=== PATIENT | female | born 1945 | race Caucasian/White ===

== ENCOUNTER → 2017-12-28 15:03 | Outpatient (CLI) | payer MEDICARE, OTHER, SELFPAY ==
--- NOTE | 2017-12-28 15:06 | HPBI_ITS ---
MAMMOGRAPHY - BILATERAL SCREENING REASON FOR EXAM: Female, 72 years old. Routine annual screening examination. PERTINENT HISTORY: Non-contributory. TECHNIQUE: Digital bilateral breast val (3D mammographic acquisition) in the CC and MLO projections. 2-D mediolateral oblique (MLO) and craniocaudad (CC) views of both breasts were obtained. CAD: Full Field Digital Mammography with Computer Added Detection was performed. COMPARISON: Comparison is made with prior study dated January 14, 2016 and August 13, 2015. FINDINGS: Breast Composition: There are scattered areas of fibroglandular density. There are no dominant masses or suspicious calcifications. No other significant abnormalities are identified. There has been no significant change since the prior study. HPBI/SCREENING MAMM (CAD), BILAT IMPRESSION: Stable bilateral screening mammogram. Yearly follow-up mammogram recommended. (A) ASSESSMENT CATEGORY: BIRADS Category 1: Negative. A letter regarding these results will be sent to the patient by the facility within 30 days. Approximately 10% of breast cancers are not detected by mammography. A normal mammogram should not delay biopsy of a clinically suspicious abnormality. [id number] Electronically Signed: Fernando Olivas MD at 8:28 EST Tel [phone], Service support ,
== END ==
PROVIDERS: Family Provider Internal Medicine; PCP Internal Medicine; Visit Provider Internal Medicine
DX: Z12.31 Encounter for screening mammogram for malignant neoplasm of breast (principal)
CPT/HCPCS: 77063; 77067

== ENCOUNTER 2018-01-02 08:47 | Outpatient (RCR) | payer MEDICARE, OTHER, SELFPAY ==
--- NOTE | 2018-01-02 10:06 | HP.PTEVAL ---
Patient's Visit Information STORM GARCIA is a 72 year old F referred to Physical Therapy by ALMA SANCHEZ with a diagnosis of LUMBAR RADICULOPATHY. Date of Evaluation: 01/02/18 Physical Therapist: Alice Ledezma - Visit Plan Frequency: 2-3x /Week Duration: 4-6 Weeks Plan: AQUATIC THERAPY. POSTURE CORRECTION/STRENGTHENING, INSTRUCTION IN APPROPRIATE BODY MECHANICS AND ACTIVITY MODIFICATIONS. DLS WITH A NEUTRAL SPINE. TONY LE ROM, STRETCHING AND STRENGTHENING. HEP INSTRUCTION. *DECOMPRESSION TECHNIQUES* - Subjective Subjective: Work/Leisure: RETIRED. Disability: NO. Present symptoms: RIGHT THORACIC PAIN RADIATING AROUND RIB CAGE. TONY LOW BACK PAIN RIGHT > LEFT. RIGHT BUTTOCK, THIGH, LEG AND FOOT PAIN. PATIENT DENIES NUMBNESS OR TINGLING. DESCRIBES SHOOTING PAIN DOWN RIGHT LE. Present since: MONTHS AGO. Pain Scale: WORST 10/10, LEAST 6/10. Currently: /10. Commenced as a result of: NO APPARENT REASONS OTHER THAN STARTINGT. Symptoms at onset: THORACIC SPINE FIRST THEN SCIATICA. Worse: LYING ON LEFT SIDE IN BED, RIDING IN A CAR, WALKING ON TREADMILL, HOUSEWORK, CAN'T PUSH A SWEEPER, CAN'T SWIFFER, COOKING, DISHES, SHOPPIING, GETTING IN/OUT OF CAR, STEPS ARE IMPOSSIBLE. Better: HEATING PAD, LAZY BOY, LIDOCAINE PATCH SOMETIMES HELPS, IBUPROFEN. Disturbed sleep: YES. Previous history/Previous treatment: 7 SPINE SURGERIES WITH MOST RECENT 1999. SURGERIES FOR SPONDYLOLITHESIS AND STABILIZATION WITH METAL. STATES SHE STARTED EXERCISING AND SWIMMING AT THE [facility] AFTER THE LAST SURGERY. STATES SHE WAS DOING PRETTY GOOD UNTIL ABOUT A YEAR AGO. STATES SHE DID A LOT OF HEAVY LIFTING LAST SPRING WHEN MOVED INTO A [place]. Coughing/sneezing/straining: POSITIVE. Gait: INDEP GAIT WITHOUT AD BUT VERY TIME AND DISTANCE LIMITED. Difficulty initiating urinatin: YES - HAS TO LEAN FORWARD AND LET THE URINE FALL OUT. HAS NOT TOLD ANY DOCTORS. HAS BEEN GOING ON SINCE LAST SUMMER. Accidents: SLIPPED AT HOME IN BEDROOM LAST FALL AND FELL ON BUTT. Unexplained weight loss: NO. Imaging: LAST WEEK THORACIC AND LUMBAR SPINE X-RAYS AT [facility]. ORDERED BY DR. DONALDSON FROM [facility]. PATIENT REPORTS NO ONE HAS GONE OVER THE RESULTS WITH HER SO SHE REALLY DOES NOT KNOW WHAT THE RESULTS ARE. PMH: 10 HEART STENTS AND BYPASS SURGERY 2011. PARTIAL COLECTOMY. HEART CATH LAST APRIL AND THEY THINK SHE HAD A MINI STROKE. - Objective Sitting Posture: RIGID. Standing Posture: RIGID. Lordosis: DECREASED. Lateral shift: NO. Relevant shift: N/A. Active Correction of posture: WORSE. Other Observations: INDEP GAIT INTO PT WITHOUT AD AND MIN FORWARD FLEXION. VERY PLEASANT AND COOPERATIVE TO WORK WITH. Motor deficit: TONY LE STRENGTH GROSSLY 4/5 WITH MMT BUT I PROCEEDED CAREFULLY DUE TO PATIENTS HIGH PAIN LEVELS AND HER NOT KNOWING THE RESULTS OF HER X-RAYS. Sensory deficit: TONY LE LIGHT TOUCH SENSATION APPREARS TO BE INTACT AND SYMMETRICAL WITH TESTING. ROM deficit: TIGHT TONY LE HS'S. Dural Signs: POSITIVE RIGHT LE. Lumbar mvmt loss: flex - MOD. ext - PAULA. R SG - PAULA. L SG - PAULA. PATIENT WITH INCREASED PAIN WITH LUMBAR ROM TESTING INTO EXTENSION (TESTED VERY GENTLY AND JUST SEEING IF PATIENT COULD GET TO NEURTRAL) BUT ESPECIALLY TONY SG TESTING. THORACIC MVMT LOSS: FLEX - MOD, EXT - PAULA, RIGHT ROT - PAULA, LEFT ROT - MOD. PATIENT HAS C/O INCREASED PAIN IN THORACIC AREA WITH RIGHT ROTATION TESTING BUT NOT LEFT. Core strength: POOR. OTHER: RADIATING PAIN DOWN RIGHT LE STARTED DURING SESSION. ABLE TO ABOLISH RIGHT LE SX'S IN RIGHT SDLY BUT THIS INCREASED THORACIC PAIN. ABLE TO DECREASE THORACIC PAIN TO 5/10 (BEST IT HAS BEEN) IN PRONE BUT LOW BACK STARTED TO INCREASE. OVER-ALL, UNABLE TO REDUCE THORACIC PAIN MUCH WITH POSITION CHANGES. WOULD RECOMMEND PATIENT GET X-RAY RESULTS AND IF NO CONTRAINDICATIONS FOR PHYSICAL THERAPY TO DO A TRIAL OF AQUATIC THERAPY. PATIENT IS AGREEABLE. - Goals Goal 1:: DECREASE C/O BACK AND LE SX'S Goal Time Frame: 4-6 Weeks Goal 2:: IMPROVE PERSONAL CARE, LIFTING, WALKING, SITTING, STANDING, LYING, SOCIAL LIFE, TRAVEL, HOMEMAKING AND SLEEP FUNCTION Goal Time Frame: 4-6 Weeks Goal 3:: INSTRUCT IN PROPHYLAXIS Goal Time Frame: 4-6 Weeks - Rehabilitation Potential Rehabilitation Potential: Fair - Anticipated Interventions Patient/Client Instruction: Educate patient on: Condition, Plan of Care, Risk Factors, Benefits of Fitness Program For the Purpose of:: To improve self management Therapeutic Exercise to Include: Strength training, Body mechanics, Postural training, Flexibilty training, In an aquatic setting, Dynamic Lumbar Stabilization For the Purpose of:: To improve ability of physical actions for home/community/work/leisure Thank you for the opportunity to evaluate your patient. For Medicare and Medicare HMO plans, please review the plan of care and approve it. It will need to be FAXED BACK to us at [phone] for Medicare purposes. Please let me know if there are questions or concerns regarding this plan of care. Physician Signature: Date:
--- NOTE | 2018-05-22 14:16 | HP.PTDCNRP_ITS ---
HP - Discharge Summary (1) - Patient Information STORM GARCIA was seen in my office for initial evaluation on 01/02/18. The following Plan of Care was established for this patient: Initial Frequency: 2-3x /Week Initial Duration: 4-6 Weeks - Anticipated Interventions Patient/Client Instruction: Educate patient on: Condition, Plan of Care, Risk Factors, Benefits of Fitness Program For the Purpose of:: To improve self management Therapeutic Exercise to Include: Strength training, Body mechanics, Postural training, Flexibilty training, In an aquatic setting, Dynamic Lumbar Stabilization For the Purpose of:: To improve ability of physical actions for home/community/ work/leisure This patient was last seen in our office 01/02/18. Pertinent comments regarding their Physical therapy will appear below: This patient has not returned to Physical Therapy and is appropriate to return to MD for further follow-up as needed. At this point I will be discontinuing this patient from physical therapy. I would be happy to see this patient again in the future if found appropriate by the physician. Thank you! Alice Ledezma
== END 2018-01-02 19:00 | disposition home or self-care (01) ==
LOC: PT 08:47
PROVIDERS: Family Provider Internal Medicine; PCP Internal Medicine
DX: M54.16 Radiculopathy, lumbar region (principal)
CPT/HCPCS: 97162; 97530

== ENCOUNTER 2019-01-14 12:00 | Outpatient (RCR) | payer MEDICARE, OTHER, SELFPAY ==
--- NOTE | 2018-12-18 09:27 | HP.PTEVAL ---
Patient's Visit Information STORM GARCIA is a 73 year old F referred to Physical Therapy by Alphonse Perry with a diagnosis of PLPS -LUMBAR,LBP,FIBROMAYALGIA. Date of Evaluation: 12/18/18 Physical Therapist: Harinder Guido, PT, Cert MDT, OCS - Visit Plan Frequency: 2x /Week Duration: 4 Weeks Plan: AQUATIC PT FOR LUMBAR ROM.STRENGTHENING ,POSTURAL EX'S,LE STRENGTHENING/FLEXABLITY - Subjective Findings: This 73 y/o female presents to physical therapy with LUMBAR - PLPS ,LBP ,Fibromayalgia. Patient mutliple comorbities -CABG and 10 stents. Patient has had 4 lumbar surgeries most recent 2011 plate a screws. Patient 1st lumbar fusion L4-5 2000,lumbar fusion L3-4 ,2005,L2-4 lumbar fusion 2006. Patient also has hade mutilpe cervical fusion and disectomy 1992,C6-7,C5-6 1994,1999 C4-5 CERVICAL FUSION,2005 C3-T1 FUSION 2005. Most recently patient seen [facility] recommended AQuatic PT. Patient pain located mainly right thoracic region . Symptoms worse with lifting,driving,housework,standing extended walking. Patient unable to take MEDS.Heat makes it better. Patient denies parathesia but occassionally tingling in feet. Patient pain affects sleeping . Coughing/sneezing -. Patient bowel/bladder -. Patient chronic pain issues affect QOL and function. VOCATION: retired. SOCIAL: - Pain Bilateral Back Pain Intensity (Out of 10): 5 Pain Intensity Range: 10 - Objective POSTURE: mild foward posture,thoracic kyphosis,scoliosis. GAIT: mild foward posture ,reciprocal pattern. NEURO: denies parathesia/tingling,reflexes L3-4,L4-5,L5-S1 1/3. PALPATION: tender L-S region. MMT: quads/hams/hip 4-/5,ankle 4/5. LUMBAR ROM: flexion WFL loss,extension mod/severe loss,side glides mod/severe loss. FLEXABLITY: hams min tight - Special Tests L/S Slump test left side: Negative L/S Slump test right side: Negative L/S Left Straight Leg Raise: Negative L/S Right Straight Leg Raise: Negative - Goals Goal 1:: Independant with Aquatic PT Goal Time Frame: 4-6 Weeks Goal 2:: Patient bto decrease lumbar pain by 40 % or greater to improve function. Goal Time Frame: 4-6 Weeks Goal 3:: Patient increase strength quads/hams/hip to 4/5 to improve function with ADL'S Goal Time Frame: 4-6 Weeks Goal 4:: Patient to improve ADL's and ability to perform housework tasks with min limiations Goal Time Frame: 4-6 Weeks Goal 5:: Patient to improve FRED lumbar score by 5 points to improve QOL. Goal Time Frame: 4-6 Weeks - Rehabilitation Potential Physical Therapy Diagnosis: This patient has multiple comorbities with lumbar and cervical fusions with pain,loss motion,decrease strength ,impairs gait and function along with ADL'S Rehabilitation Potential: Good - Anticipated Interventions Patient/Client Instruction: Educate patient on: Condition, Plan of Care For the Purpose of:: To decrease pain, To increase ROM, To improve muscle performance and motor function, To improve ability to perform ADL's, To increase tolerance to activity/condition/position, To improve ability of physical actions for home/community/work/leisure, To improve health of tissue, To decrease soft tissue restriction, To increase flexibility/ROM, To reduce risk of recurrence, To improve health and function, To improve ability to perform tasks related to life management Therapeutic Exercise to Include: Strength training, Postural training, Flexibilty training, In an aquatic setting, Dynamic Lumbar Stabilization Comment: BLE For the Purpose of:: To decrease pain, To increase ROM, To improve muscle performance and motor function, To increase tolerance to activity/condition/position, To decrease level of supervision to perform tasks, To improve ability of physical actions for home/community/work/leisure, To improve gait and locomotor functions, To decrease soft tissue restriction, To increase flexibility/ROM, To improve health and function, To improve ability to perform tasks related to life management Thank you for the opportunity to evaluate your patient. For Medicare and Medicare HMO plans, please review the plan of care and approve it. It will need to be FAXED BACK to us at [phone] for Medicare purposes. For Medicare only, by signing this I certify the plan of care. Please let me know if there are questions or concerns regarding this plan of care. Physician Signature: Date:
--- NOTE | 2019-02-27 13:21 | HP.PTDCSUM ---
HP - PT D/C Summary It has been my pleasure to treat STORM GARCIA under orders from Alphonse Perry, for the diagnosis of PLPS -LUMBAR,LBP,FIBROMAYALGIA for a total of 7 visit(s). Discharge Date: 01/14/19 Please see the following information for a summary of their discharge status. - Subjective Subjective: Symptoms same when I was in water the sciatica pain. got worse.Patient reports alot better with predisone with min pain - Pain Bilateral Back Pain Intensity (Out of 10): 3 L knee Pain Intensity (Out of 10): 3 - Overall Improvement % Improvement: 40 - Objective Objective/Function: POSTURE: mild foward posture. GAIT: normal sherin reciprocal pattern. MMT: quads/hams 4/5,hip flexion 4-/5. LUMBAR ROM: flexion min loss,extension mod loss. -SLR - Goals Goal 1:: Independant with Aquatic PT Goal Progress: Not Progressing Goal 2:: Patient bto decrease lumbar pain by 40 % or greater to improve function. Goal Progress: Progressing Goal 3:: Patient increase strength quads/hams/hip to 4/5 to improve function with ADL'S Goal Progress: Progressing Goal 4:: Patient to improve ADL's and ability to perform housework tasks with min limiations Goal Progress: Progressing Goal 5:: Patient to improve FRED lumbar score by 5 points to improve QOL. Goal Progress: Progressing - Plan Plan: D/C - D/C Information If there are questions or concerns regarding this patient's physical therapy, please feel free to call me at [phone]. Thank you for the referral of this patient. Sincerely, Harinder Guido, PT, Cert MDT, OCS
== END 2019-01-14 19:00 | disposition home or self-care (01) ==
LOC: PT 12:00
PROVIDERS: Family Provider Family Medicine; PCP Family Medicine; Visit Provider Physical Medicine & Rehabilitation
DX: M96.1 Postlaminectomy syndrome, not elsewhere classified (principal); M54.5 Low back pain; M79.7 Fibromyalgia
CPT/HCPCS: 97113; 97162; 97530

== ENCOUNTER → 2019-01-31 07:55 | Outpatient (CLI) | payer MEDICARE, OTHER, SELFPAY ==
--- NOTE | 2019-01-31 | ASPIG_PTH ---
PATIENT: STORM GARCIA LOC: [facility]#:[id number] AGE/SX: 79/F ROOM: RE01/31/[address]: Dr. Valdo Tang MD : 1945 BED: DIS: SPEC #: [id number] RECD: 01/31/19 11:13 STATUS: FAITH CIFUENTESAnnalee #: [id number] TOMER: 01/31/19 00:[address]: Valdo Tang DEPT: CYTOLOGY RECD BY: Vikram Cervantes ENTERED: 01/31/19 11:14 SP TYPE: ASP OUT OTHR DR: Dr. Milton Zepeda MD Tissues: Thyroid gland, NOS Procedures: FNA Specimen Adequacy Special Stain Group II Surgery Specimen Level IV Cytology Other HEADER OPERATION: Ultrasound-guided FNA right thyroid PRE-OP DIAGNOSIS: Right thyroid nodule TISSUE SUBMITTED: Right thyroid lobe FNA DIAGNOSIS CYTOLOGY Right thyroid lobe, ultrasound-guided FNA (smears, cytospin and cell block): Consistent with benign colloid nodule. Adequate for evaluation. See cytology study and comment. SJ:alvino 02/01/19 COMMENT The specimen is evaluated at the time of FNA by Dr. Cedillo. Immediate Evaluation = Adequate for evaluation. Follicular cells present. Correlation with clinical, radiologic findings and appropriate follow up are necessary. Case has been reviewed in consultation with Dr. Abraham who concurs with the above diagnosis. IDC:AM CYTOLOGY STUDY Slides are reviewed. The specimen is paucicellular, however, adequate for evaluation and consists of benign follicular cells and small amount of colloid. CYTOLOGY GROSS Received in three passes is 0.5 ml of bloody fluid labeled with the patient's name, and designated right thyroid lobe. Six imprints and six paps are made from the submitted fluid and the rest is added to CytoLyt for cell block preparation. Submitted for cytology study. / KAYLI:alvino 01/31/19 TC:5 CPT: 83236, 76220, 38701, 06835
--- NOTE | 2019-01-31 08:00 | US_ITS ---
PROCEDURE: ULTRASOUND GUIDED RIGHT THYROID FNA/BIOPSY. DATE: January 31, 2019 INDICATION: Female, 73 years old. Right thyroid nodule. PHYSICIAN: Fernando Olivas M.D. MEDICATIONS: 2% lidocaine administered subcutaneously for local anesthesia. ACCESS SITE: Right - anterior approach. NEEDLE: 25-gauge FNA needle. SPECIMEN: Multiple FNA specimen collected and given to pathology. EBL: None. COMPLICATIONS: None immediate. PROCEDURE: The risks, benefits, and alternatives to the procedure were explained to the patient. The specific risk of hemorrhage requiring further treatment or intervention was detailed and accepted. Written informed consent was obtained. The patient was brought into the ultrasound room and placed in the supine position on the stretcher. An appropriate entry site was identified. The overlying skin was prepped and draped in the usual sterile fashion. 2% lidocaine was administered subcutaneously for local anesthesia. Under ultrasound guidance, a 25-gauge FNA needle was advanced into the lesion. Aspiration was performed and the needle was withdrawn. A total of 3 passes were performed with specimen collected and given to the pathologist who was present during the procedure. Hemostasis was achieved with manual compression. Repeat ultrasound images of the biopsy area was performed which demonstrated no gross bleeding or hematoma. An antibiotic ointment dressing was placed and the patient was given an icepack. The patient tolerated the procedure well without immediate complications. The patient was discharged in stable condition. US/FNA 1st Biopsy w/ US IMPRESSION: Successful ultrasound-guided right thyroid nodule FNA/biopsy, as described above. Electronically Signed: Fernando Olivas, at 11:13 EDT , Service support ,
--- NOTE | 2019-02-11 15:58 | ED.RN ---
DURING FOLLOW UP CALL PT MENTIONED THAT SHE CALLED HER DR'S OFFICE TODAY AND THEY HAD NO RECEIVED PATHOLOGY REPORT YET. LESLY ALVAREZ THEN CALLED DR. RG OFFICE TO SEE IF THEY HAD RECEIVED THE CYTOLOGY REPORT. DR RG OFFICE STAFF, ANILA LOOKED IN PATIENT'S CHART AND THERE WAS NO CYTOLOGY REPORT. LESLY ALVAREZ FAXED OVER CYTOLOGY REPORT TO DR. IFRAH HASKINS.
== END ==
PROVIDERS: Family Provider Family Medicine; PCP Family Medicine; Referring Provider Otolaryngology; Visit Provider Otolaryngology
DX: E04.1 Nontoxic single thyroid nodule (principal)
CPT/HCPCS: 10005; 88161; 88172; 88305; 88313

== ENCOUNTER 2019-03-03 07:23 | Inpatient (IN) | payer MEDICARE, OTHER, SELFPAY ==
[2019-03-03] VITALS (16 sets, daily range): BP systolic 103–161; BP diastolic 55–89; PULSE 55–130; RESP 13–27; TEMP 36.4–36.9; O2SAT 93–96; BMI 22.0; BMI 23.4
--- NOTE | 2019-03-03 07:30 | RAD_ITS ---
STUDY: X-RAY CHEST REASON FOR EXAM: Female, 73 years old. Sudden onset of chest pain this morning with jaw pain and bilateral arm pain. TECHNIQUE: Single AP portable view of the chest. COMPARISON: August 06, 2016 FINDINGS: Cardiac monitoring leads are present. Patient is status post sternotomy. The lungs are hyperexpanded. There is no obvious airspace consolidation. There is no demonstrated pleural abnormality. There is mild cardiac enlargement. Normal mediastinum and jessica. Normal visualized pulmonary arteries. There is atherosclerotic calcification of the aortic arch with tortuosity. There is demineralization of the osseous structures. Patient has had previous cervical spine surgery. Patient has also had previous lumbar spine surgery. There is no demonstrated abnormality of the visualized soft tissue structures of the upper abdomen. RAD/Chest 1 View (Portable) IMPRESSION: Postoperative changes and cardiomegaly without evidence of acute cardiopulmonary disease. Electronically Signed: Celeste Byrd MD at 8:05 EDT , Service support ,
--- NOTE | 2019-03-03 07:30 | EKG12_ITS ---
Test Reason : CP Blood Pressure : / mmHG Vent. Rate : 128 BPM Atrial Rate : 122 BPM P-R Int : 000 ms QRS Dur : 084 ms QT Int : 282 ms P-R-T Axes : 000 047 047 degrees QTc Int : 411 ms Atrial fibrillation with rapid ventricular response Nonspecific ST abnormality Abnormal ECG Confirmed by RENARD MCCULLOUGH, REBECCA ([id number]), supervising editor trailer BERNARDA AVERY ([id number]) on 03/06/2019 9:04:43 AM Referred By: CONSTANTINO Confirmed By:REBECCA GLYNN MD
--- NOTE | 2019-03-03 07:34 | ED.VISSUMM ---
- ER Visit Summary Date of Service: 03/03/19 Chief Complaint: [] Rapid heart rate chest pressure History of Present Illness: The patient is a 73 F [] patient indicates she went to bed feeling fine she was awoken at 5 AM with a sense of rapid heart rate chest pounding jaw pain chest pressure, she has a history of CABG 2011 her cardiovascular status has been stable, A. fib she is not known to currently be in A. fib she believes she is in sinus rhythm, she is followed by trimmer and reinforcer in the [facility], he has had no fever no nausea vomiting no cough no exertional symptoms, her rapid heart rate persisted and she came in on arrival she is noted to be in A. fib rate 120-140 RVR her vital signs are within normal range otherwise Physical Examination: [] Vital signs are within normal range except for the heart rate above General, no distress resting comfortably HEENT is generally unremarkable The neck is supple no adenopathy Cardiovascular, irregular 110-140 A. fib on the monitor Lungs, clear bilateral Abdomen, soft nontender Extremities, no clubbing cyanosis or edema Neurologic, awake alert answering questions appropriately moving all 4 extremities Test Results: [] Emergency Department Course and Treatment: [] EKG shows A. fib RVR 130 no acute injury pattern is appreciated given all the above screening labs are obtained IV fluids pain management Cardizem for rate control Treatment Plan: [] Patient screening labs chest x-ray unremarkable she is been treated the Cardizem her heart rate is lower clinically she looks well and she is stable I spoke with the hospitalist given all the above will arrange for admission Disposition: [] Admit stable Impression: [] A. fib RVR recurrent, paroxysmal, history of CABG history of A. fib This note was generated with [employer] software. It may contain incorrect words, spelling, and punctuation that were not noted in review of the chart prior to signing ED Disposition - Plan for ED Patient: Referrals: Milton Zepeda MD [Primary Care Provider] -
--- NOTE | 2019-03-03 07:37 | ED.DCSUM_ITS ---
- ER Visit Summary Date of Service: 03/03/19 Chief Complaint: [] Rapid heart rate chest pressure History of Present Illness: The patient is a 73 F [] patient indicates she went to bed feeling fine she was awoken at 5 AM with a sense of rapid heart rate chest pounding jaw pain chest pressure, she has a history of CABG 2011 her cardiovascular status has been stable, A. fib she is not known to currently be in A. fib she believes she is in sinus rhythm, she is followed by sales office assistant in the [facility], he has had no fever no nausea vomiting no cough no exertional symptoms, her rapid heart rate persisted and she came in on arrival she is noted to be in A. fib rate 120-140 RVR her vital signs are within normal range otherwise Physical Examination: [] Vital signs are within normal range except for the heart rate above General, no distress resting comfortably HEENT is generally unremarkable The neck is supple no adenopathy Cardiovascular, irregular 110-140 A. fib on the monitor Lungs, clear bilateral Abdomen, soft nontender Extremities, no clubbing cyanosis or edema Neurologic, awake alert answering questions appropriately moving all 4 extremities Test Results: [] Emergency Department Course and Treatment: [] EKG shows A. fib RVR 130 no acute injury pattern is appreciated given all the above screening labs are obtained IV fluids pain management Cardizem for rate control Treatment Plan: [] Patient screening labs chest x-ray unremarkable she is been treated the Cardizem her heart rate is lower clinically she looks well and she is stable I spoke with the hospitalist given all the above will arrange for admission Disposition: [] Admit stable Impression: [] A. fib RVR recurrent, paroxysmal, history of CABG history of A. fib This note was generated with [employer] software. It may contain incorrect words, spelling, and punctuation that were not noted in review of the chart prior to signing ED Disposition - Plan for ED Patient: Referrals: Milton Zepeda MD [Primary Care Provider] -
[2019-03-03 07:42] LABS: Absolute Neutrophil Count 6.3 X10^3/uL (2.0-7.7); Basophil# 0.03 X10^3/uL; Basophil% 0.3 % (0-1); Hematocrit 39.8 % (37-47); Hemoglobin 13.4 g/dl (12.0-15.0); Lymphocyte % 22.1 % (19-41); Mean Corp Hgb Conc 33.7 g/gl (32-36); Mean Corpuscular Hgb 30.2 pg (27.0-32.0); Mean Corpuscular Volume 89.6 fL (81-99); Mean Platelet Vol. 9.9 fl (6.2-12.0); Monocyte# 1.02 X10^3/uL; Monocyte% 10.7 % (0-10); Neutrophil # 6.31 X10^3/uL (2.7-7.7); Neutrophil % 66.6 % (47-70); Platelet Count 351 K/mm3 (150-450); RBC Distribution Width CV 13.6 % (11.6-14.6); Red Blood Count 4.44 M/mm3 (4.2-5.4); White Blood Count 9.5 K/mm3 (4.4-11.0)
[2019-03-03 07:52] LABS: POSITIVE COUNT NO; POSITIVE DIFFERENTIAL NO; POSITIVE MORPHOLOGY NO
[2019-03-03] MEDS: Ondansetron 4 MG/2 ML Vial IV (07:55)
[2019-03-03] MEDS: 0.9% Normal Saline 1,000 ML 150 ML IV (07:55)
[2019-03-03] MEDS: Aspirin 81 MG TAB.CHEW 324 MG PO (07:55)
[2019-03-03] MEDS: HYDROmorphone 0.5 MG/0.5 ML SYRINGE IV (07:57)
[2019-03-03] MEDS: dilTIAZem 25 MG/5 ML Vial 20 MG IV BOLUS (07:57)
[2019-03-03 08:00] LABS: Anion Gap 7 (5-15); BUN 19 mg/dL (7-18); BUN/Creat Ratio 17.1 RATIO (10-20); Calcium,Total 8.8 mg/dL (8.5-10.1); Chloride 100 mmol/L (98-107); Creatinine, Serum 1.11 mg/dL (0.55-1.02); EST Glomerular Filtration Rate 51 mL/min (>60); Est Glom Filt Rate - Afr Amer 62 mL/min (>60); Estimated Creatinine Clearance 45.53 ml/min; Glucose 98 mg/dL (74-106); Potassium 3.8 mmol/L (3.5-5.1); Sodium Level 134 mmol/L (136-145)
--- NOTE | 2019-03-03 09:31 | EKG12_ITS ---
Test Reason : REPEAT Blood Pressure : / mmHG Vent. Rate : 079 BPM Atrial Rate : 141 BPM P-R Int : 000 ms QRS Dur : 082 ms QT Int : 390 ms P-R-T Axes : 000 019 032 degrees QTc Int : 447 ms Atrial fibrillation Abnormal ECG Confirmed by REBECCA GLYNN MD ([id number]), primer expeditor and drier BERNARDA AVREY ([id number]) on 03/06/2019 9:16:05 AM Referred By: CONSTANTINO Confirmed By:REBECCA GLYNN MD
[2019-03-03 10:33] LABS: Magnesium 1.8 mg/dL (1.6-2.6); Thyroid Stim Hormone (TSH) 2.11 uIU/mL (0.358-3.74)
[2019-03-03] MEDS: 0.9% Normal Saline 1,000 ML 75 ML IV (12:06)
--- NOTE | 2019-03-03 12:58 | PCM.HP.STD ---
Problem List (1) History of coronary artery bypass graft x 3 Status: Chronic Comment: 2012 (2) History of PTCA Status: Chronic (3) Fibromyalgia Status: Chronic (4) Hypertension Status: Chronic Qualifiers: Hypertension type: essential hypertension Qualified Code(s): I10 - Essential (primary) hypertension (5) Hyperlipidemia Status: Chronic Comment: INTOLERANT OF STATINS (6) Endometriosis Status: Chronic Comment: Status post DEJUAN/BSO (7) Crohns disease Status: Chronic Comment: Status post partial colectomy (8) Atrial fibrillation with RVR Status: Acute (9) Coronary artery disease Status: Chronic Qualifiers: Coronary Disease-Associated Artery/Lesion type: [place] artery (10) Diverticulosis Status: Chronic (11) Polyarthritis Status: Chronic (12) Hyponatremia Status: Acute (13) Elevated serum creatinine Status: Acute (14) Chest pain Status: Acute History of Present Illness Date of Admission: 03/03/19 Chief Complaint: Substernal chest pain with radiation to the neck and to the right arm The patient is a 73 year old F with a past medical history of hypertension, rheumatic fever, coronary artery disease with history of PTCA and a CABG in 2011, hyperlipidemia, endometriosis (status post DEJUAN/BSO), fibromyalgia and polyarthritis who presented to the emergency department at [facility] on 03/03/2019 complaining of substernal chest pain that awoke her from sleep. It radiated into the neck and down the right arm. She has been getting this pain frequently and when she gets that she knows she is in atrial fibrillation. She generally takes a Cardizem 30 mg when she feels this. After an hour and a half the pain was still there and she came to the emergency department. She tells me she also gets substernal chest pain radiating to the neck and down the right arm with exertion. She has been using approximately 25 sublingual nitroglycerin a week. She has not had a recent stress test. She had an anaphylactic reaction to amiodarone in the past. She tells me she cannot take beta-blockers because they cause throbbing stabbing pain in her right scientologist. She tells me Imdur, statins and Nitropaste give her the same stabbing pain in the right scientologist. Eliquis and Xarelto also caused the stabbing CHENG. She is worried that she may have and aneurysm. Vital signs of presentation to the emergency room are temperature 98.4, pulse rate 124, blood pressure 161/89, respiratory rate 27 and she was 96% on room air. The EKG showed atrial flutter/atrial fibrillation with some ST segment depression which was upsloping in the lateral leads. She received 20 mg of IV Cardizem in the emergency department which controlled her heart rate nicely. CBC was unremarkable. Sodium is mildly decreased at 134 and the potassium is 3.8. BUN is 19 and the creatinine is 1.11. We have no recent baseline on this patient. She generally follows up at [facility]. Troponin I's less than 0.015 and TSH was normal at 2.11. Magnesium was 1.8. Chest x-ray showed no infiltrates, pleural effusions or pulmonary vascular congestion. She was admitted to a monitored bed on PCU and will be started on Cardizem CD 120 mg. Past Medical History Past Medical History (Chronic Problems): Chronic Problems History of coronary artery bypass graft x 3 (Chronic) 2011 History of PTCA (Chronic) Fibromyalgia (Chronic) Hypertension (Chronic) Hyperlipidemia (Chronic) INTOLERANT OF STATINS Endometriosis (Chronic) Status post DEJUAN/BSO Crohns disease (Chronic) Status post partial colectomy Diverticulosis (Chronic) Polyarthritis (Chronic) Coronary artery disease (Chronic) Allergies almond Allergy (Severe, Verified 03/03/19 10:41) Anaphylaxis amiodarone Allergy (Severe, Verified 03/03/19 10:41) Anaphylaxis [place]qg-Dvj-F[employer] Reductase Inhibitor Allergy (Mild, Verified 03/03/19 10:41) Other muscle pain diazepam [From Valium] Adverse Reaction (Severe, Verified 03/03/19 10:41) Low blood pressure morphine Adverse Reaction (Severe, Verified 03/03/19 10:41) Low blood pressure lorazepam [From Ativan] Adverse Reaction (Intermediate, Verified 03/03/19 10:41) Other Agitation Home Medications: Ambulatory Orders Medication Instructions Recorded Aspirin 81 mg PO DAILY 08/06/16 Clopidogrel Bisulfate [Plavix] 25 mg PO DAILY 08/06/16 Gabapentin [Neurontin] 300 mg PO QHS 08/06/16 Linaclotide [Linzess] 1 cap PO DAILY 08/06/16 Nitroglycerin [Nitrostat] 0.4 mg SUBLINGUAL Q5M PRN 08/06/16 Orlistat [Xenical] 60 mg PO DAILY 08/06/16 Acetaminophen 325 mg PO TID PRN PRN 03/03/19 Ascorbic Acid [Vitamin C] 1,000 mg PO DAILY 03/03/19 Besifloxacin HCl [Besivance] 5 ml RIGHT EYE 4X/DAY 03/03/19 Difluprednate [Durezol] 5 ml RIGHT EYE 4X/DAY 03/03/19 Diltiazem [Cardizem] 30 mg PO DAILY PRN 03/03/19 Prednisone 5 mg PO DAILY 03/03/19 Sodium Chloride [Krish-128 5%] 1 applic RIGHT EYE QHS 03/03/19 Surgical History: appendectomy - With hysterectomy, cholecystectomy, colectomy - for crohn's disease, partial, coronary bypass surgery - ?3 vessel in 2011, hysterectomy - with BL oophorectomy for endometriosis, tonsillectomy, - - Colonoscopy without lesions, back surgery due to discogenic and degenerative joint disease Psychiatric History: No pertinent 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 Denies: Edema, Orthopnea, Syncope Respiratory: Reports: Shortness of breath upon exertion. Denies: Cough, Shortness of breath at rest, Sputum production, Wheezing Gastrointestinal: Denies: Abdominal Pain, Nausea, Vomiting Genitourinary: Denies: Dysuria Gynecological: Reports: Vaginal discharge - was recently on Amoxicillin Musculoskeletal: Denies: Joint Pain, Joint Tenderness Skin: Denies: Jaundice, Rash, Wounds Neurological: Denies: Numbness, Tingling, Focal weakness Psychiatric: Denies: Anxiety, Depression, Homicidal Ideations, Suicidal Ideations Endocrine: Denies: Hx of Thyroiditis Hematologic/ Lymphatic: Denies: Easy Bruising, Easy Bleeding, Hx of blood clot VTE Information - Inpt Only VTE Present on Admission: No VTE Mechan Device Prophylaxis: None VTE Pharm Prophylaxis ordered?: No Reason prophylaxis not ordered:: Treatment Not Indicated - pt is on Eliquis 1 mg/kg q 12H Patient Problems: Active and Suspected Problems Hyponatremia (Acute) Elevated serum creatinine (Acute) Chest pain (Acute) - Physical Exam General: Alert, Oriented x3, Cooperative, No apparent distress, Well developed, Well nourished HEENT: Atraumatic, PERRLA, EOMI, Normocephalic Oral: Dry Mucosa Neck: Supple, No JVD, Negative Carotid Bruits, No Nodes, Trachea Midline Lungs: Clear to auscultation, Normal air movement Cardiovascular: Normal S1, Normal S2, No murmurs, No rub noted, No Gallop, - - AF with controlled VR at the present time Abdomen: Bowel Sounds Present, Soft, Non Tender, Non-Distended Extremities: No clubbing, No cyanosis, No edema, No Calf Tenderness, Peripheral Pulses Normal Skin: No rashes, No breakdown Musculoskeletal: No Muscle Wasting Neurological: Cranial nerves II-XII grossly intact, Neuro grossly intact Psych/Mental Status: Normal Affect, Appropriate Vital Signs Temp Pulse Resp BP Pulse Ox 97.6 F L 75 17 103/55 L 94 03/03/19 10:02 03/03/19 11:02 03/03/19 10:02 03/03/19 10:02 03/03/19 10:02 Oxygen Flow Rate (L/min) 2 Oxygen Delivery Method Room Air Weight: 154 lb 1.65 oz Body Mass Index (BMI) 23.4 Intake and Output for Last 24 Hours 03/01/19 03/02/19 03/03/19 23:59 23:59 23:59 Intake Total 120 / 120 Balance 120 / 120 Laboratory Tests Past 24 Hrs 03/03/19 03/03/19 03/03/19 07:30 07:30 07:30 WBC 9.5 RBC 4.44 Hgb 13.4 Hct 39.8 MCV 89.6 MCH 30.2 MCHC 33.7 RDW 13.6 RDW Differential 44.0 H Plt Count 351 MPV 9.9 Immature Gran % (Auto) 0.300 Neut % (Auto) 66.6 Lymph % (Auto) 22.1 [place] % (Auto) 10.7 H Eos % (Auto) 0.0 Baso % (Auto) 0.3 Absolute Neuts (auto) 6.3 Absolute Lymphs (auto) 2.10 Total Counted Not Reportable Sodium 134 L Potassium 3.8 Chloride 100 Carbon Dioxide 27.0 Anion Gap 7 BUN 19 H Creatinine 1.11 H Estim Creat Clear Calc 45.53 Est GFR (MDRD) Af Amer 62 Est GFR (MDRD) Non-Af 51 L BUN/Creatinine Ratio 17.1 Glucose 98 Calcium 8.8 Magnesium Troponin I < 0.015 B-Natriuretic Peptide 133.0 H TSH 03/03/19 03/03/19 07:30 10:20 WBC RBC Hgb Hct MCV MCH MCHC RDW RDW Differential Plt Count MPV Immature Gran % (Auto) Neut % (Auto) Lymph % (Auto) [place] % (Auto) Eos % (Auto) Baso % (Auto) Absolute Neuts (auto) Absolute Lymphs (auto) Total Counted Sodium Potassium Chloride Carbon Dioxide Anion Gap BUN Creatinine Estim Creat Clear Calc Est GFR (MDRD) Af Amer Est GFR (MDRD) Non-Af BUN/Creatinine Ratio Glucose Calcium Magnesium 1.8 Troponin I < 0.015 B-Natriuretic Peptide TSH 2.11 Assessment/Plan All Active Problems Hyponatremia (Acute) Elevated serum creatinine (Acute) Chest pain (Acute) Chronic back pain (Acute) Atrial fibrillation with RVR (Acute) Impressions 1. AF/flutter with RVR - Cardizem ordered. Not on any anticoagulation as OP 2. chest pain with RVR and with exertion associated with SOB and radiating to the neck and the R arm. CABG was in 2012 and she has not had any recent stress test 3. CAD 4. HTN 5. HLD - has Repatha at home but has not taking it. She is intolerant of statins 6. CABG 2012 X 3 vessels 7. PTCA in the past 8. Fibromyalgia 9. hx of endometriosis - S/P DEJUAN with BSO 10. hx of crohn's - S/P partial colectomy 11. diverticulosis CTA of the head and neck to r/o cerebral aneurysm. ESR to r/o temporal arteritis Lovenox 70 mg Q 12H Cardizem CD 120 mg once daily NTG PRN serial CE's ECHO in the AM Consult Dr. Centeno in the AM (at patients request) Recheck BMP and mag in the AM Supplement potassium to keep it at around 4 and magnesium to keep it at 2. Code Visit Inpatient E&M: 32441 Init Hosp L3
--- NOTE | 2019-03-03 13:14 | CT_ITS ---
STUDY: CTA OF THE BRAIN REASON FOR EXAM: Female, 73 years old. Right cataract surgery last week. New right vision loss. RADIATION DOSAGE (If Supplied By Facility): CTDIvol = ( 31.6 ) mGy, DLP = ( 1412.86 ) mGycm TECHNIQUE: CT angiography was performed with a multi-detector CT scanner. Data acquisition was obtained from the skull base through the vertex following intravenous administration of 100 IV Isovue 370. MIP images were reconstructed from the axial data set. Post-processing of the angiographic images was performed, with multiplanar reformation and 3D reconstruction. Individualized dose optimization techniques were used for this CT. COMPARISON: None. FINDINGS: Normal bilateral petrous carotid arteries. Normal right cavernous carotid artery with a normal supraclinoid bifurcation. Normal left cavernous carotid artery with a normal supraclinoid bifurcation. Mildly hypoplastic right A1 segment of the anterior cerebral artery. Normal left A1 segment of the anterior cerebral artery. Normal intact anterior communicating artery (ACOM). Normal bilateral A2 segments of the anterior cerebral arteries. Normal right M1 and M2 segments of the middle cerebral arteries, with a normal M1 bifurcation. Normal left M1 and M2 segments of the middle cerebral arteries, with a normal M1 bifurcation. Normal right posterior communicating artery (PCOM). Normal left posterior communicating artery (PCOM). Normal bilateral vertebral arteries. Normal basilar artery with a normal basilar bifurcation. The visualized bilateral superior cerebellar (SCA) arteries are normal. Normal bilateral P1, P2 and visualized P3 segments of the posterior cerebral arteries. There is no demonstrated aneurysm of the [place]. There is no demonstrated abnormality of the visualized brain. CT/CTA Head W/WO Contrast IMPRESSION: 1. No CTA evidence of vaso-occlusive disease of the anterior and posterior intracranial circulation. 2. No CTA evidence of intracranial aneurysm, saccular or fusiform type. Electronically Signed: Johnathan Su MD at 15:35 EDT , Service support ,
--- NOTE | 2019-03-03 13:14 | CT_ITS ---
STUDY: CTA NECK WITH CONTRAST REASON FOR EXAM: Female, 73 years old. Right cataract surgery last week. New right vision loss. RADIATION DOSAGE (If Supplied By Facility): CTDIvol = ( 31.6 ) mGy, DLP = ( 1412.86 ) mGycm TECHNIQUE: CT angiography with multi-detector data acquisition was performed from the aortic arch to the skull base following intravenous administration of 100 IV Isovue 370. MIP images were reconstructed from the axial data set. Post-processing of the angiographic images was performed, with multiplanar reformation and 3D reconstruction. Individualized dose optimization techniques were used for this CT. COMPARISON: None. FINDINGS: AORTIC ARCH: Normal visualized aortic arch. Normal origins of the brachiocephalic, left common carotid, and left subclavian arteries. RIGHT CAROTID ARTERIES: Normal right common carotid artery (CCA). Normal right internal carotid bulb. Widely patent origin of the right internal carotid (ICA) artery without a hemodynamically significant stenosis. Normal visualized cervical portion of the right internal carotid artery. 50% stenosis at the origin of the right external carotid artery (ECA) due to calcified plaque. LEFT CAROTID ARTERIES: Prominent calcified plaques in the posterior wall of the left common carotid bifurcation (CCA). Widely patent left internal carotid artery bulb. Widely patent origin of the left internal carotid (ICA) artery. Normal visualized cervical portion of the left internal carotid artery. Normal origin of the left external carotid artery (ECA). VERTEBRAL ARTERIES: Normal bilateral vertebral arteries. The left vertebral is dominant. The subclavian origins of both vertebral arteries are widely patent. CT/CTA Neck W/WO Contrast IMPRESSION: 1. Widely patent bilateral common carotid arteries and bilateral internal carotid arteries. 2. Widely patent aortic arch and origins of the great vessels. 3. Widely patent bilateral vertebral arteries from their subclavian origins to their respective intradural segments. Electronically Signed: Johnathan Su MD at 15:40 EDT , Service support ,
[2019-03-03] MEDS: dilTIAZem CD 120 MG Capsule PO (13:21)
[2019-03-03 13:36] LABS: Erythrocyte Sedimentation Rate < 1 mm/hr (0-30)
[2019-03-03] MEDS: 0.9% NaCl Peripheral Flush Adult/Peds IV (13:36)
[2019-03-03 13:49] LABS: CRP < 2.90 mg/L (0.0-3.0)
[2019-03-03] MEDS: predniSONE 5 MG Tablet PO (14:48)
[2019-03-03] MEDS: Fluconazole 100 MG Tablet PO (16:04)
--- NOTE | 2019-03-03 18:02 | EKG12_ITS ---
Test Reason : RHYTHMN CHANGE Blood Pressure : / mmHG Vent. Rate : 062 BPM Atrial Rate : 062 BPM P-R Int : 212 ms QRS Dur : 082 ms QT Int : 440 ms P-R-T Axes : 050 012 057 degrees QTc Int : 446 ms Sinus rhythm with 1st degree A-V block Otherwise normal ECG When compared with ECG of 03-MAR-2019 09:48, MANUAL COMPARISON REQUIRED, DATA IS UNCONFIRMED Confirmed by RENARD MCCULLOUGH, REBECCA ([id number]), editor farm journal BERNARDA AVERY ([id number]) on 03/06/2019 10:02:46 AM Referred By: JUSTINO Confirmed By:REBECCA GLYNN MD
[2019-03-03] MEDS: Gabapentin 300 MG Capsule PO (20:17)
[2019-03-03] MEDS: Acetaminophen 500 MG Tablet 1000 MG PO (20:17)
[2019-03-04] VITALS (10 sets, daily range): BP systolic 106–122; BP diastolic 51–78; PULSE 51–81; RESP 13–18; TEMP 36.4–36.8; O2SAT 94–96
--- NOTE | 2019-03-04 05:55 | ECHOD_ITS ---
Reason For Study: Arrhythmia Procedure This was a 2D Doppler, Color Flow transthoracic echocardiogram. Exam performed portable in patient room. Left Ventricle Normal LV size. Left ventricular systolic function is normal. The estimated ejection fraction is 60 %. Stage 2 diastolic dysfunction. No regional wall motion abnormalities noted. Right Ventricle Normal RV size. Normal systolic function. Atria Normal left atrium. Normal right atrium. Mitral Valve Normal mitral valve. Mild (1+) eccentric mitral valve insufficiency. Tricuspid Valve Normal tricuspid valve. Aortic Valve Normal aortic valve. Trisinus/trileaflet aortic valve. Pulmonic Valve Normal pulmonic valve. Great Vessels Normal aortic root. The pulmonary artery is normal size. Normal inferior vena cava. Pericardium/Pleural No pericardial effusion. MMode/2D Measurements & Calculations LVIDd: 3.7 cm IVSd: 1.1 cm Ao root diam: 3.2 cm LVIDs: 2.6 cm LVPWd: 1.1 cm RVDd: 3.2 cm FS: 30.0 % LAV(MOD-bp): 41.2 ml LA A4 area: 14.4 cm2 LA dimension(2D): 3.2 cm LAV(MOD-bp) Indexed: 22.5 ml/m2 LAV(MOD-sp2): 48.3 ml LAV(MOD-sp4): 34.3 ml RA A4 area: 14.6 cm2 Doppler Measurements & Calculations MV E max eran: 122.0 cm/sec Lat Peak E' Rean: 11.0 cm/sec Med Peak E' Eran: 6.8 cm/sec MV A max eran: 63.7 cm/sec E/E' lat: 11.1 E/E' med: 18.0 MV E/A: 1.9 Ao V2 max: 124.2 cm/sec LV V1 max: 95.5 cm/sec Ao max P.2 mmHg LV V1 max P.6 mmHg Interpretation Summary Normal LV size. Left ventricular systolic function is normal. The estimated ejection fraction is 60 %. Stage 2 diastolic dysfunction. Mild (1+) eccentric mitral valve insufficiency. Ordering Physician: Diann Davey Referring Physician: Milton Zepeda Performed By: Jojo Choudhury RDCS
[2019-03-04] MEDS: 0.9% Normal Saline 1,000 ML 75 ML IV (06:00)
[2019-03-04 06:24] LABS: Hematocrit 35.1 % (37-47); Hemoglobin 11.6 g/dl (12.0-15.0); Mean Corpuscular Hgb 30.3 pg (27.0-32.0); Mean Corpuscular Volume 91.6 fL (81-99); Platelet Count 307 K/mm3 (150-450); RBC Distribution Width CV 13.8 % (11.6-14.6); RBC Distribution Width SD 45.8 fl (35.1-43.9); Red Blood Count 3.83 M/mm3 (4.2-5.4); White Blood Count 10.7 K/mm3 (4.4-11.0)
[2019-03-04 06:36] LABS: ALB/GLOB Ratio 1.2 RATIO (0.9-2.4); AST(SGOT) 12 U/L (15-37); Alanine Aminotransfer ALT/SGPT 16 U/L (13-56); Albumin, Serum 2.8 g/dL (3.2-5.0); Alkaline Phosphatase 77 U/L (45-117); Anion Gap 6 (5-15); BUN 12 mg/dL (7-18); Calcium,Total 8.1 mg/dL (8.5-10.1); Chloride 106 mmol/L (98-107); Cholesterol 217 mg/dL (200); EST Glomerular Filtration Rate 87 mL/min (>60); Est Glom Filt Rate - Afr Amer 105 mL/min (>60); Estimated Creatinine Clearance 50.54 ml/min; Globulin 2.3 g/dL (2.2-4.2); Glucose 88 mg/dL (74-106); High Density Lipoprotein 59 mg/dL; Magnesium 2.3 mg/dL (1.6-2.6); Phosphorus 3.1 mg/dL (2.5-4.9); Potassium 4.4 mmol/L (3.5-5.1); Protein, Total 5.1 g/dL (6.4-8.2); Sodium Level 139 mmol/L (136-145); Triglycerides 183 mg/dL; Very Low Density Lipoprotein 37 mg/dL (5-40)
[2019-03-04 06:37] LABS: Scan Indicated on CBC? Y/N NO
[2019-03-04] MEDS: predniSONE 5 MG Tablet PO (08:01)
[2019-03-04] MEDS: Magnesium Oxide 400 MG Tablet PO (08:01)
[2019-03-04] MEDS: Aspirin 81 MG TAB.CHEW PO (08:01)
[2019-03-04] MEDS: dilTIAZem CD 120 MG Capsule PO (09:08)
[2019-03-04] MEDS: Clopidogrel Bisulfate 75 MG Tablet PO (09:08)
--- NOTE | 2019-03-04 14:30 | CASEMGMT ---
LESLY CHRISTIAN assessment: Face to Face with patient for initial transition planning/care coordination assessment. LESLY CHRISTIAN introduced self and role at [facility], pt voices understanding and consents to assessment at this time. Pt is sitting up in chair in no distress at this time. Pt is A/Ox4 at this time and answers all questions appropriately at this time. Care providers, pharmacy, and demographics verified at this time. PCP: Katelyn Specialists: Wolfgang Land cardio; Wolfgang Guzman GI Preferred Pharmacy: [facility] Insurance: MCR A/B, [employer] Prescription Benefit: MCR D, [employer] and separate plan as well, per pt Living Will/HPOA: Pt states has LW/HPOA and pt is aware that they are not on file at [facility] at this time. Pt states that her , Zhang Dunne, is HPOA. LNOK: Zhang Dunne, Living Arrangements: Pt states lives with in [facility] with a finished basement and states no concerns at home at this time. Transportation: Pt states drives self and states no transportation concerns at this time. DME/HHC: Pt states has grab bars in shower and no further DME at this time. Pt states no need for any further DME at this time. Pt states has had HHC after CABG x3 but states no hx of SNF in the past. Pt states no concerns with going home at time of discharge and is anxious to leave at this time as she states that her injured his knee and is having trouble getting around at home. Pt states is retired. Pt states does not smoke or drink ETOH. Pt states no further concerns/needs at this time. CM to follow for any further discharge planning/needs. Advised pt to ask for CM if any further questions/concerns/needs arise, voices understanding. Pt Goal: Home Plan[place] LESLY CHRISTIAN
--- NOTE | 2019-03-04 14:52 | PCM.CONS.C ---
Reason for Consult Date of Consultation: 03/04/19 Reason for Consultation: Abnormal cardiac rhythm History of Present Illness: The patient is a 73 year old F with a past medical history of hypertension, rheumatic fever, coronary artery disease with history of PTCA and a CABG in 2011, hyperlipidemia, endometriosis (status post DEJUAN/BSO), fibromyalgia and polyarthritis who presented to the emergency department at [facility] on 03/03/2019 complaining of substernal chest pain that awoke her from sleep. It radiated into the neck and down the right arm. She has been getting this pain frequently and when she gets that she knows she is in atrial fibrillation. She generally takes a Cardizem 30 mg when she feels this. After an hour and a half the pain was still there and she came to the emergency department. She tells me she also gets substernal chest pain radiating to the neck and down the right arm with exertion. She has been using approximately 25 sublingual nitroglycerin a week. She has not had a recent stress test. She had an anaphylactic reaction to amiodarone in the past. She tells me she cannot take beta-blockers because they cause throbbing stabbing pain in her right episcopal. She tells me Imdur, statins and Nitropaste give her the same stabbing pain in the right episcopal. Eliquis and Xarelto also caused the stabbing CHENG. She is worried that she may have and aneurysm. Vital signs of presentation to the emergency room are temperature 98.4, pulse rate 124, blood pressure 161/89, respiratory rate 27 and she was 96% on room air. The EKG showed atrial flutter/atrial fibrillation with some ST segment depression which was upsloping in the lateral leads. She received 20 mg of IV Cardizem in the emergency department which controlled her heart rate nicely. CBC was unremarkable. Sodium is mildly decreased at 134 and the potassium is 3.8. BUN is 19 and the creatinine is 1.11. She was admitted to the telemetry care unit where she was evaluated and she eventually spontaneously converted to sinus rhythm. She feels well at this particular time. Past Medical History Allergies/Adverse Reactions: Allergies almond Allergy (Severe, Verified 03/03/19 10:41) Anaphylaxis amiodarone Allergy (Severe, Verified 03/03/19 10:41) Anaphylaxis Irdjfwd-Hqu-Wms Reductase Inhibitor Allergy (Mild, Verified 03/03/19 10:41) Other muscle pain diazepam [From Valium] Adverse Reaction (Severe, Verified 03/03/19 10:41) Low blood pressure morphine Adverse Reaction (Severe, Verified 03/03/19 10:41) Low blood pressure lorazepam [From Ativan] Adverse Reaction (Intermediate, Verified 03/03/19 10:41) Other Agitation Home Medications: Ambulatory Orders Medication Instructions Recorded Aspirin 81 mg PO DAILY 08/06/16 Clopidogrel Bisulfate [Plavix] 25 mg PO DAILY 08/06/16 Gabapentin [Neurontin] 300 mg PO QHS 08/06/16 Linaclotide [Linzess] 1 cap PO DAILY 08/06/16 Nitroglycerin [Nitrostat] 0.4 mg SUBLINGUAL Q5M PRN 08/06/16 Orlistat [Xenical] 60 mg PO DAILY 08/06/16 Acetaminophen 325 mg PO TID PRN PRN 03/03/19 Ascorbic Acid [Vitamin C] 1,000 mg PO DAILY 03/03/19 Besifloxacin HCl [Besivance] 5 ml RIGHT EYE 4X/DAY 03/03/19 Difluprednate [Durezol] 5 ml RIGHT EYE 4X/DAY 03/03/19 Diltiazem [Cardizem] 30 mg PO DAILY PRN 03/03/19 Prednisone 5 mg PO DAILY 03/03/19 Sodium Chloride [Krish-128 5%] 1 applic RIGHT EYE QHS 03/03/19 Past Medical History (Chronic Problems): Chronic Problems History of coronary artery bypass graft x 3 (Chronic) 2011 History of PTCA (Chronic) Fibromyalgia (Chronic) Hypertension (Chronic) Hyperlipidemia (Chronic) INTOLERANT OF STATINS Endometriosis (Chronic) Status post DEJUAN/BSO Crohns disease (Chronic) Status post partial colectomy Diverticulosis (Chronic) Polyarthritis (Chronic) Coronary artery disease (Chronic) Surgical History: appendectomy - With hysterectomy, cholecystectomy, colectomy - for crohn's disease, partial, coronary bypass surgery - ?3 vessel in 2011, hysterectomy - with BL oophorectomy for endometriosis, tonsillectomy, - - Colonoscopy without lesions, back surgery due to discogenic and degenerative joint disease Psychiatric History: No pertinent psych hx 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 Denies: Shortness of Breath, Orthopnea, PND, Peripheral Edema, Lightheadedness, Dizziness, Near Syncope, Syncope Respiratory: Denies: Cough, Sputum Production, Hemoptysis Gastrointestinal: Denies: Hematemesis, Hematochezia, Melena Genitourinary: Denies: Dysuria, Hematuria Skin: Denies: Rash Neurological: Denies: Dizziness Psychiatric: Reports: Anxiety Endocrine: Denies: Unexplained Weight Loss Hematologic/ Lymphatic: Denies: Anemia Subjectve: Pleasant lady in no apparent distress at this time Objective: Vital Signs Temp Pulse Resp BP Pulse Ox 98.2 F 69 16 117/55 L 96 03/04/19 13:16 03/04/19 13:16 03/04/19 13:16 03/04/19 13:16 03/04/19 13:16 Oxygen Flow Rate (L/min) 2 Oxygen Delivery Method Room Air Weight: 154 lb 1.65 oz Body Mass Index (BMI) 23.4 Intake and Output for Last 24 Hours 03/02/19 03/03/19 03/04/19 23:59 23:59 23:59 Intake Total 1267 / 1267 1346 / 1346 Balance 1267 / 1267 1346 / 1346 General: Awake, Alert, Oriented x 3 HEENT: PERRL, EOMI, Sclera Non Icteric Neck: Supple, Good ROM, No Lymph Node Enlargement Lungs: Clear to auscultation Cardiovascular: Regular Rhythm, Normal S1, Normal S2, No Murmurs, No Rubs, No Gallops Vascular: No Carotid Bruits, Normal Femoral Pulses, Normal Radial Pulses, Normal Dorsalis Pedal Pulse, Normal Posterior Tibial Pulses Abdomen: Bowel Sounds Present, Soft, Non Tender, No HSM, No Organomegaly Extremities: No Cyanosis, No Clubbing, No edema Musculoskeletal: No Erythema Skin: No Rashes Lymphatic: No Lymph Node Enlargement Neurological: No Focal Motor or Sensory Deficit Psych/Mental Status: Appropriate 03/04/19 05:40: WBC 10.7, RBC 3.83 L, Hgb 11.6 L, Hct 35.1 L, MCV 91.6, MCH 30.3, MCHC 33.0, RDW 13.8, RDW Differential 45.8 H, Plt Count 307, MPV 10.0 03/04/19 05:40: Sodium 139, Potassium 4.4, Chloride 106, Carbon Dioxide 27.0, Anion Gap 6, BUN 12, Creatinine 0.70, Est GFR (MDRD) Af Amer 105, Est GFR (MDRD) Non-Af 87, BUN/Creatinine Ratio 17.0, Glucose 88, Calcium 8.1 L, Phosphorus 3.1, Magnesium 2.3, Total Bilirubin 0.30, Triglycerides 183, Cholesterol 217 H, LDL Cholesterol 121, VLDL Cholesterol 37, HDL Cholesterol 59 Rhythm: EKG: EKG on admission demonstrated atrial fibrillation with a rapid ventricular response rate of 128 bpm. EKG this morning demonstrates normal sinus rhythm with a rate of 62 bpm. Assessment/Plan 1. Atrial fibrillation The patient presents with atrial fibrillation which appears to have spontaneously converted to sinus rhythm. My recommendation at this time is that as she has an elevated chads score, she should be started on anticoagulation. I have been able to convince her to try going back on the Eliquis 5 mg twice a day with a diltiazem to see how she does. An echocardiogram should be performed to assess her left ventricular function. 2. Coronary artery disease She does have a history of coronary artery disease but has not had any angina currently. Her chest discomfort at this time appears to be rather atypical. We may consider performing some formal stress testing as an outpatient. In the meantime she will continue on the calcium channel linda as she has not been able to tolerate beta-blockers. 3. Hypertension Her blood pressure today appears to be fairly decently controlled I would recommend that we continue the same without making any changes. 4. Hyperlipidemia There is also appears to be stable and will continue on her current medications. She is not been able to tolerate the statins in the past and therefore dietary manipulation continues to be utilized. Thank you for allowing me to participate in the care of your patient. Please don't hesitate to call if any issues arise
--- NOTE | 2019-03-04 14:56 | CON.PCM_ITS ---
Reason for Consult Date of Consultation: 03/04/19 Reason for Consultation: Abnormal cardiac rhythm History of Present Illness: The patient is a 73 year old F with a past medical history of hypertension, rheumatic fever, coronary artery disease with history of PTCA and a CABG in 2011, hyperlipidemia, endometriosis (status post DEJUAN/BSO), fibromyalgia and polyarthritis who presented to the emergency department at [facility] on 03/03/2019 complaining of substernal chest pain that awoke her from sleep. It radiated into the neck and down the right arm. She has been getting this pain frequently and when she gets that she knows she is in atrial fibrillation. She generally takes a Cardizem 30 mg when she feels this. After an hour and a half the pain was still there and she came to the emergency department. She tells me she also gets substernal chest pain radiating to the neck and down the right arm with exertion. She has been using approximately 25 sublingual nitroglycerin a week. She has not had a recent stress test. She had an anaphylactic reaction to amiodarone in the past. She tells me she cannot take beta-blockers because they cause throbbing stabbing pain in her right jainism. She tells me Imdur, statins and Nitropaste give her the same stabbing pain in the right jainism. Eliquis and Xarelto also caused the stabbing CHENG. She is worried that she may have and aneurysm. Vital signs of presentation to the emergency room are temperature 98.4, pulse rate 124, blood pressure 161/89, respiratory rate 27 and she was 96% on room air. The EKG showed atrial flutter/atrial fibrillation with some ST segment depression which was upsloping in the lateral leads. She received 20 mg of IV Cardizem in the emergency department which controlled her heart rate nicely. CBC was unremarkable. Sodium is mildly decreased at 134 and the potassium is 3.8. BUN is 19 and the creatinine is 1.11. She was admitted to the telemetry care unit where she was evaluated and she eventually spontaneously converted to sinus rhythm. She feels well at this particular time. Past Medical History Allergies/Adverse Reactions: Allergies almond Allergy (Severe, Verified 03/03/19 10:41) Anaphylaxis amiodarone Allergy (Severe, Verified 03/03/19 10:41) Anaphylaxis Wmztqmd-Omf-Lgz Reductase Inhibitor Allergy (Mild, Verified 03/03/19 10:41) Other muscle pain diazepam [From Valium] Adverse Reaction (Severe, Verified 03/03/19 10:41) Low blood pressure morphine Adverse Reaction (Severe, Verified 03/03/19 10:41) Low blood pressure lorazepam [From Ativan] Adverse Reaction (Intermediate, Verified 03/03/19 10:41) Other Agitation Home Medications: Ambulatory Orders Medication Instructions Recorded Aspirin 81 mg PO DAILY 08/06/16 Clopidogrel Bisulfate [Plavix] 25 mg PO DAILY 08/06/16 Gabapentin [Neurontin] 300 mg PO QHS 08/06/16 Linaclotide [Linzess] 1 cap PO DAILY 08/06/16 Nitroglycerin [Nitrostat] 0.4 mg SUBLINGUAL Q5M PRN 08/06/16 Orlistat [Xenical] 60 mg PO DAILY 08/06/16 Acetaminophen 325 mg PO TID PRN PRN 03/03/19 Ascorbic Acid [Vitamin C] 1,000 mg PO DAILY 03/03/19 Besifloxacin HCl [Besivance] 5 ml RIGHT EYE 4X/DAY 03/03/19 Difluprednate [Durezol] 5 ml RIGHT EYE 4X/DAY 03/03/19 Diltiazem [Cardizem] 30 mg PO DAILY PRN 03/03/19 Prednisone 5 mg PO DAILY 03/03/19 Sodium Chloride [Krish-128 5%] 1 applic RIGHT EYE QHS 03/03/19 Past Medical History (Chronic Problems): Chronic Problems History of coronary artery bypass graft x 3 (Chronic) 2011 History of PTCA (Chronic) Fibromyalgia (Chronic) Hypertension (Chronic) Hyperlipidemia (Chronic) INTOLERANT OF STATINS Endometriosis (Chronic) Status post DEJUAN/BSO Crohns disease (Chronic) Status post partial colectomy Diverticulosis (Chronic) Polyarthritis (Chronic) Coronary artery disease (Chronic) Surgical History: appendectomy - With hysterectomy, cholecystectomy, colectomy - for crohn's disease, partial, coronary bypass surgery - ?3 vessel in 2011, hysterectomy - with BL oophorectomy for endometriosis, tonsillectomy, - - Colonoscopy without lesions, back surgery due to discogenic and degenerative joint disease Psychiatric History: No pertinent psych hx 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 Denies: Shortness of Breath, Orthopnea, PND, Peripheral Edema, Lightheadedness, Dizziness, Near Syncope, Syncope Respiratory: Denies: Cough, Sputum Production, Hemoptysis Gastrointestinal: Denies: Hematemesis, Hematochezia, Melena Genitourinary: Denies: Dysuria, Hematuria Skin: Denies: Rash Neurological: Denies: Dizziness Psychiatric: Reports: Anxiety Endocrine: Denies: Unexplained Weight Loss Hematologic/ Lymphatic: Denies: Anemia Subjectve: Pleasant lady in no apparent distress at this time Objective: Vital Signs Temp Pulse Resp BP Pulse Ox 98.2 F 69 16 117/55 L 96 03/04/19 13:16 03/04/19 13:16 03/04/19 13:16 03/04/19 13:16 03/04/19 13:16 Oxygen Flow Rate (L/min) 2 Oxygen Delivery Method Room Air Weight: 154 lb 1.65 oz Body Mass Index (BMI) 23.4 Intake and Output for Last 24 Hours 03/02/19 03/03/19 03/04/19 23:59 23:59 23:59 Intake Total 1267 / 1267 1346 / 1346 Balance 1267 / 1267 1346 / 1346 General: Awake, Alert, Oriented x 3 HEENT: PERRL, EOMI, Sclera Non Icteric Neck: Supple, Good ROM, No Lymph Node Enlargement Lungs: Clear to auscultation Cardiovascular: Regular Rhythm, Normal S1, Normal S2, No Murmurs, No Rubs, No Gallops Vascular: No Carotid Bruits, Normal Femoral Pulses, Normal Radial Pulses, Normal Dorsalis Pedal Pulse, Normal Posterior Tibial Pulses Abdomen: Bowel Sounds Present, Soft, Non Tender, No HSM, No Organomegaly Extremities: No Cyanosis, No Clubbing, No edema Musculoskeletal: No Erythema Skin: No Rashes Lymphatic: No Lymph Node Enlargement Neurological: No Focal Motor or Sensory Deficit Psych/Mental Status: Appropriate 03/04/19 05:40: WBC 10.7, RBC 3.83 L, Hgb 11.6 L, Hct 35.1 L, MCV 91.6, MCH 30.3, MCHC 33.0, RDW 13.8, RDW Differential 45.8 H, Plt Count 307, MPV 10.0 03/04/19 05:40: Sodium 139, Potassium 4.4, Chloride 106, Carbon Dioxide 27.0, Anion Gap 6, BUN 12, Creatinine 0.70, Est GFR (MDRD) Af Amer 105, Est GFR (MDRD) Non-Af 87, BUN/Creatinine Ratio 17.0, Glucose 88, Calcium 8.1 L, Phosphorus 3.1, Magnesium 2.3, Total Bilirubin 0.30, Triglycerides 183, Cholesterol 217 H, LDL Cholesterol 121, VLDL Cholesterol 37, HDL Cholesterol 59 Rhythm: EKG: EKG on admission demonstrated atrial fibrillation with a rapid ventricular response rate of 128 bpm. EKG this morning demonstrates normal sinus rhythm with a rate of 62 bpm. Assessment/Plan 1. Atrial fibrillation * The patient presents with atrial fibrillation which appears to have spontaneously converted to sinus rhythm. My recommendation at this time is that as she has an elevated chads score, she should be started on anticoagulation. I have been able to convince her to try going back on the Eliquis 5 mg twice a day with a diltiazem to see how she does. An echocardiogram should be performed to assess her left ventricular function. * 2. Coronary artery disease * She does have a history of coronary artery disease but has not had any angina currently. Her chest discomfort at this time appears to be rather atypical. We may consider performing some formal stress testing as an outpatient. In the meantime she will continue on the calcium channel linda as she has not been able to tolerate beta-blockers. * 3. Hypertension * Her blood pressure today appears to be fairly decently controlled I would recommend that we continue the same without making any changes. * 4. Hyperlipidemia * There is also appears to be stable and will continue on her current medications. She is not been able to tolerate the statins in the past and therefore dietary manipulation continues to be utilized. * * Thank you for allowing me to participate in the care of your patient. Please don't hesitate to call if any issues arise
--- NOTE | 2019-03-04 16:01 | PCM.DC ---
- Discharge Diagnoses Current Active Problems: Current Active and Chronic Problems History of coronary artery bypass graft x 3 (Chronic) 2012 History of PTCA (Chronic) Fibromyalgia (Chronic) Hypertension (Chronic) Hyperlipidemia (Chronic) INTOLERANT OF STATINS Endometriosis (Chronic) Status post DEJUAN/BSO Crohns disease (Chronic) Status post partial colectomy Hyponatremia (Acute) Elevated serum creatinine (Acute) Chest pain (Acute) You will use the following diet at home:: Cardiac Discharge Activity: Return to Normal Activity Call your doctor if you observe: Shortness of breath, Dizziness, Fainting spells, Chest pain Allergies/Adverse Reactions: Allergies almond Allergy (Severe, Verified 03/03/19 10:41) Anaphylaxis amiodarone Allergy (Severe, Verified 03/03/19 10:41) Anaphylaxis Gphtvxm-Ssv-Jqj Reductase Inhibitor Allergy (Mild, Verified 03/03/19 10:41) Other muscle pain diazepam [From Valium] Adverse Reaction (Severe, Verified 03/03/19 10:41) Low blood pressure morphine Adverse Reaction (Severe, Verified 03/03/19 10:41) Low blood pressure lorazepam [From Ativan] Adverse Reaction (Intermediate, Verified 03/03/19 10:41) Other Agitation Medications to take at Discharge Aspirin 81 mg PO DAILY 08/06/16 Clopidogrel Bisulfate [Plavix] 25 mg PO DAILY 08/06/16 Gabapentin [Neurontin] 300 mg PO QHS 08/06/16 Linaclotide [Linzess] 1 cap PO DAILY 08/06/16 Nitroglycerin [Nitrostat] 0.4 mg SUBLINGUAL Q5M PRN 08/06/16 Orlistat [Xenical] 60 mg PO DAILY 08/06/16 Acetaminophen 325 mg PO TID PRN PRN 03/03/19 Ascorbic Acid [Vitamin C] 1,000 mg PO DAILY 03/03/19 Besifloxacin HCl [Besivance] 5 ml RIGHT EYE 4X/DAY 03/03/19 Difluprednate [Durezol] 5 ml RIGHT EYE 4X/DAY 03/03/19 Prednisone 5 mg PO DAILY 03/03/19 Sodium Chloride [Krish-128 5%] 1 applic RIGHT EYE QHS 03/03/19 Apixaban [Eliquis] 5 mg PO BID #60 tablet 03/04/19 Diltiazem CD [Cardizem CD] 120 mg PO DAILY #30 capsule 03/04/19 Magnesium Oxide [Mag-Ox 400] 400 mg PO DAILYCM #30 tablet 03/04/19 The following prescriptions were given: Diltiazem CD [Cardizem CD] 120 mg PO DAILY #30 capsule Magnesium Oxide [Mag-Ox 400] 400 mg PO DAILYCM #30 tablet Apixaban [Eliquis] 5 mg PO BID #60 tablet Primary Care Physician: Milton Zepeda MD [Primary Care Provider] - Please follow up with your Primary Care Physician in: 1 Week Test Results: Test results from this visit will be discussed in further detail at your follow-up appointment, if applicable. Please Follow Up With: Dr. delacruz - Primary Welding Manager When: 1 Week Proposed Discharge Date: 03/04/19
--- NOTE | 2019-03-04 16:10 | DCINST_ITS ---
- Discharge Diagnoses Current Active Problems: Current Active and Chronic Problems History of coronary artery bypass graft x 3 (Chronic) 2012 History of PTCA (Chronic) Fibromyalgia (Chronic) Hypertension (Chronic) Hyperlipidemia (Chronic) INTOLERANT OF STATINS Endometriosis (Chronic) Status post DEJUAN/BSO Crohns disease (Chronic) Status post partial colectomy Hyponatremia (Acute) Elevated serum creatinine (Acute) Chest pain (Acute) You will use the following diet at home:: Cardiac Discharge Activity: Return to Normal Activity Call your doctor if you observe: Shortness of breath, Dizziness, Fainting spells, Chest pain Allergies/Adverse Reactions: Allergies almond Allergy (Severe, Verified 03/03/19 10:41) Anaphylaxis amiodarone Allergy (Severe, Verified 03/03/19 10:41) Anaphylaxis Koplfnt-Ilk-Vlm Reductase Inhibitor Allergy (Mild, Verified 03/03/19 10:41) Other muscle pain diazepam [From Valium] Adverse Reaction (Severe, Verified 03/03/19 10:41) Low blood pressure morphine Adverse Reaction (Severe, Verified 03/03/19 10:41) Low blood pressure lorazepam [From Ativan] Adverse Reaction (Intermediate, Verified 03/03/19 10:41) Other Agitation Medications to take at Discharge Aspirin 81 mg PO DAILY 08/06/16 Clopidogrel Bisulfate [Plavix] 25 mg PO DAILY 08/06/16 Gabapentin [Neurontin] 300 mg PO QHS 08/06/16 Linaclotide [Linzess] 1 cap PO DAILY 08/06/16 Nitroglycerin [Nitrostat] 0.4 mg SUBLINGUAL Q5M PRN 08/06/16 Orlistat [Xenical] 60 mg PO DAILY 08/06/16 Acetaminophen 325 mg PO TID PRN PRN 03/03/19 Ascorbic Acid [Vitamin C] 1,000 mg PO DAILY 03/03/19 Besifloxacin HCl [Besivance] 5 ml RIGHT EYE 4X/DAY 03/03/19 Difluprednate [Durezol] 5 ml RIGHT EYE 4X/DAY 03/03/19 Prednisone 5 mg PO DAILY 03/03/19 Sodium Chloride [Krish-128 5%] 1 applic RIGHT EYE QHS 03/03/19 Apixaban [Eliquis] 5 mg PO BID #60 tablet 03/04/19 Diltiazem CD [Cardizem CD] 120 mg PO DAILY #30 capsule 03/04/19 Magnesium Oxide [Mag-Ox 400] 400 mg PO DAILYCM #30 tablet 03/04/19 The following prescriptions were given: Diltiazem CD [Cardizem CD] 120 mg PO DAILY #30 capsule Magnesium Oxide [Mag-Ox 400] 400 mg PO DAILYCM #30 tablet Apixaban [Eliquis] 5 mg PO BID #60 tablet Primary Care Physician: Milton Zepeda MD [Primary Care Provider] - Please follow up with your Primary Care Physician in: 1 Week Test Results: Test results from this visit will be discussed in further detail at your follow- up appointment, if applicable. Please Follow Up With: Dr. delacruz - Primary Proof Operator When: 1 Week Proposed Discharge Date: 03/04/19
--- NOTE | 2019-03-04 16:12 | PCM.DC.SUM ---
Discharge Date and Diagnosis Date of Admission: 03/03/19 Date of Discharge: 03/04/19 - Primary Discharge Diagnosis Active and Suspected Problems 1. Atrial fibrillation with RVR 2. Chest pain, ACS ruled out 3. CAD status post CABG/PTCA 4. Hypertension 5. Hyperlipidemia 6. Fibromyalgia 7. History of endometriosis s/p DEJUAN with BSO 8. History of Crohn's status post partial colectomy/diverticulosis - Secondary Discharge Diagnosis Chronic Problems History of coronary artery bypass graft x 3 (Chronic) 2012 History of PTCA (Chronic) Fibromyalgia (Chronic) Hypertension (Chronic) Hyperlipidemia (Chronic) INTOLERANT OF STATINS Endometriosis (Chronic) Status post DEJUAN/BSO Crohns disease (Chronic) Status post partial colectomy Diverticulosis (Chronic) Polyarthritis (Chronic) Coronary artery disease (Chronic) Hospital Course and Treatment Imaging Results: Diagnostic Data Chest X-Ray 03/03/19 07:30 IMPRESSION: Postoperative changes and cardiomegaly without evidence of acute cardiopulmonary disease. Electronically Signed: Celeste Byrd MD at 8:05 EDT , Service support , Head CTA 03/03/19 13:14 IMPRESSION: 1. No CTA evidence of vaso-occlusive disease of the anterior and posterior intracranial circulation. 2. No CTA evidence of intracranial aneurysm, saccular or fusiform type. Electronically Signed: Johnathan Su MD at 15:35 EDT , Service support , Neck CTA 03/03/19 13:14 IMPRESSION: 1. Widely patent bilateral common carotid arteries and bilateral internal carotid arteries. 2. Widely patent aortic arch and origins of the great vessels. 3. Widely patent bilateral vertebral arteries from their subclavian origins to their respective intradural segments. Electronically Signed: Johnathan Su MD at 15:40 EDT , Service support , Dr. Centeno- Cardiology Operations: None Procedures: 2-D Echocardiogram Summary of Care Provided: The patient is a 73 year old F admitted 03/03/2019 due to substernal chest pain. 1. Atrial fibrillation with RVR-cardiology consulted, Dr. Centeno. Patient spontaneously converted to sinus rhythm. She was initiated on Eliquis 5 mg twice daily as well as Cardizem Cd 120 mg daily. Echocardiogram completed and will be followed up with primary academic adviser. Report pending at discharge. Troponin negative. Neck CTA showed patent bilateral common carotid arteries and bilateral internal carotid arteries. Head CTA showed no evidence of vaso-occlusive disease. Follow-up with primary academic adviser in 1 week. 2. Chest pain, ACS ruled out-suspect secondary to #1. Troponin negative. EKG without ST-T changes. Echo pending as noted above. 3. CAD status post CABG/PTCA-continue follow-up with primary academic adviser, Dr. Emery dumont/ Wolfgang. 4. Hypertension-stable. 5. Hyperlipidemia-statin allergy. 6. Fibromyalgia 7. History of endometriosis s/p DEJUAN with BSO 8. History of Crohn's status post partial colectomy/diverticulosis Patient seen and examined prior to discharge. Physical assessment as noted below. Patient is stable for discharge with follow up recommendations as noted above. This patient was seen by BOLA Nichols under the supervision of Dr. Cordoba. - Physical Exam General: Alert, Oriented x3, Cooperative HEENT: Atraumatic, PERRLA, EOMI, Normocephalic Neck: Supple, No JVD, Negative Carotid Bruits Lungs: Clear to auscultation, Normal air movement Cardiovascular: Regular rate, Regular Rhythm, Normal S1, Normal S2, No murmurs Abdomen: Bowel Sounds Present, Soft, Non Tender, Non-Distended Extremities: No clubbing, No cyanosis, No edema, Capillary Refill Less than 3 Seconds Skin: No rashes, No breakdown Musculoskeletal: No Tenderness to Palpation of Joints or Extremities Neurological: Cranial nerves II-XII grossly intact, Neuro grossly intact Psych/Mental Status: Normal Affect, Appropriate Vital Signs Temp Pulse Resp BP Pulse Ox 98.2 F 71 16 117/55 L 96 03/04/19 13:16 03/04/19 14:58 03/04/19 13:16 03/04/19 13:16 03/04/19 13:16 Oxygen Flow Rate (L/min) 2 Oxygen Delivery Method Room Air Weight: 154 lb 1.65 oz Body Mass Index (BMI) 23.4 Intake and Output for Last 24 Hours 03/02/19 03/03/19 03/04/19 23:59 23:59 23:59 Intake Total 1267 / 1267 1346 / 1346 Balance 1267 / 1267 1346 / 1346 Laboratory Tests Past 24 Hrs 03/04/19 03/04/19 05:40 05:40 WBC 10.7 RBC 3.83 L Hgb 11.6 L Hct 35.1 L MCV 91.6 MCH 30.3 MCHC 33.0 RDW 13.8 RDW Differential 45.8 H Plt Count 307 MPV 10.0 Sodium 139 Potassium 4.4 Chloride 106 Carbon Dioxide 27.0 Anion Gap 6 BUN 12 Creatinine 0.70 Estim Creat Clear Calc 50.54 Est GFR (MDRD) Af Amer 105 Est GFR (MDRD) Non-Af 87 BUN/Creatinine Ratio 17.0 Glucose 88 Calcium 8.1 L Phosphorus 3.1 Magnesium 2.3 Total Bilirubin 0.30 AST 12 L ALT 16 Alkaline Phosphatase 77 Total Protein 5.1 L Albumin 2.8 L Globulin 2.3 Albumin/Globulin Ratio 1.2 Triglycerides 183 Cholesterol 217 H LDL Cholesterol 121 VLDL Cholesterol 37 HDL Cholesterol 59 Discharge Diet: Low fat/ Low Cholesterol Discharge Activity: Return to Normal Activity Call your doctor if you observe: Shortness of breath, Dizziness, Fainting spells, Chest pain Home Medications: Medications to take at Discharge Gabapentin [Neurontin] 300 mg PO QHS 08/06/16 Linaclotide [Linzess] 1 cap PO DAILY 08/06/16 Nitroglycerin [Nitrostat] 0.4 mg SUBLINGUAL Q5M PRN 08/06/16 Orlistat [Xenical] 60 mg PO DAILY 08/06/16 Acetaminophen 325 mg PO TID PRN PRN 03/03/19 Ascorbic Acid [Vitamin C] 1,000 mg PO DAILY 03/03/19 Besifloxacin HCl [Besivance] 5 ml RIGHT EYE 4X/DAY 03/03/19 Difluprednate [Durezol] 5 ml RIGHT EYE 4X/DAY 03/03/19 Prednisone 5 mg PO DAILY 03/03/19 Sodium Chloride [Krish-128 5%] 1 applic RIGHT EYE QHS 03/03/19 Apixaban [Eliquis] 5 mg PO BID #60 tablet 03/04/19 Diltiazem CD [Cardizem CD] 120 mg PO DAILY #30 capsule 03/04/19 Magnesium Oxide [Mag-Ox 400] 400 mg PO DAILYCM #30 tablet 03/04/19 Following Prescrptions Were Given to Patient: Diltiazem CD [Cardizem CD] 120 mg PO DAILY #30 capsule Magnesium Oxide [Mag-Ox 400] 400 mg PO DAILYCM #30 tablet Apixaban [Eliquis] 5 mg PO BID #60 tablet Primary Care Physician: Milton Zepeda MD [Primary Care Provider] - Please follow up with your Primary Care Physician in: 1 Week Please Follow Up With: Dr. delacruz - Primary E Commerce Analyst When: 1 Week Disposition: Home Minutes spent on discharge:: 35 Patient Condition:: Stable Medical Necessity - Tobacco Use Smoking Status: Never smoker Tobacco Use: Non-smoker Meaningful Use Info Meaningful Use Diagnoses (Choose all that apply): None applicable
--- NOTE | 2019-03-04 16:22 | DS.PCM_ITS ---
Discharge Date and Diagnosis Date of Admission: 03/03/19 Date of Discharge: 03/04/19 - Primary Discharge Diagnosis Active and Suspected Problems 1. Atrial fibrillation with RVR 2. Chest pain, ACS ruled out 3. CAD status post CABG/PTCA 4. Hypertension 5. Hyperlipidemia 6. Fibromyalgia 7. History of endometriosis s/p DEJUAN with BSO 8. History of Crohn's status post partial colectomy/diverticulosis - Secondary Discharge Diagnosis Chronic Problems History of coronary artery bypass graft x 3 (Chronic) 2012 History of PTCA (Chronic) Fibromyalgia (Chronic) Hypertension (Chronic) Hyperlipidemia (Chronic) INTOLERANT OF STATINS Endometriosis (Chronic) Status post DEJUAN/BSO Crohns disease (Chronic) Status post partial colectomy Diverticulosis (Chronic) Polyarthritis (Chronic) Coronary artery disease (Chronic) Hospital Course and Treatment Imaging Results: Diagnostic Data Chest X-Ray 03/03/19 07:30 IMPRESSION: Postoperative changes and cardiomegaly without evidence of acute cardiopulmonary disease. Electronically Signed: Celeste Byrd MD at 8:05 EDT , Service support , Head CTA 03/03/19 13:14 IMPRESSION: 1. No CTA evidence of vaso-occlusive disease of the anterior and posterior intracranial circulation. 2. No CTA evidence of intracranial aneurysm, saccular or fusiform type. Electronically Signed: Johnathan Su MD at 15:35 EDT , Service support , Neck CTA 03/03/19 13:14 IMPRESSION: 1. Widely patent bilateral common carotid arteries and bilateral internal carotid arteries. 2. Widely patent aortic arch and origins of the great vessels. 3. Widely patent bilateral vertebral arteries from their subclavian origins to their respective intradural segments. Electronically Signed: Johnathan Su MD at 15:40 EDT , Service support , Dr. Centeno- Cardiology Operations: None Procedures: 2-D Echocardiogram Summary of Care Provided: The patient is a 73 year old F admitted 03/03/2019 due to substernal chest pain. 1. Atrial fibrillation with RVR-cardiology consulted, Dr. Centeno. Patient spontaneously converted to sinus rhythm. She was initiated on Eliquis 5 mg twice daily as well as Cardizem Cd 120 mg daily. Echocardiogram completed and will be followed up with primary varnish blender. Report pending at discharge. Troponin negative. Neck CTA showed patent bilateral common carotid arteries and bilateral internal carotid arteries. Head CTA showed no evidence of vaso- occlusive disease. Follow-up with primary varnish blender in 1 week. 2. Chest pain, ACS ruled out-suspect secondary to #1. Troponin negative. EKG without ST-T changes. Echo pending as noted above. 3. CAD status post CABG/PTCA-continue follow-up with primary varnish blender, Dr. Emery dumont/ Wolfgang. 4. Hypertension-stable. 5. Hyperlipidemia-statin allergy. 6. Fibromyalgia 7. History of endometriosis s/p DEJUAN with BSO 8. History of Crohn's status post partial colectomy/diverticulosis Patient seen and examined prior to discharge. Physical assessment as noted below. Patient is stable for discharge with follow up recommendations as noted above. This patient was seen by BOLA Nichols under the supervision of Dr. Cordoba. - Physical Exam General: Alert, Oriented x3, Cooperative HEENT: Atraumatic, PERRLA, EOMI, Normocephalic Neck: Supple, No JVD, Negative Carotid Bruits Lungs: Clear to auscultation, Normal air movement Cardiovascular: Regular rate, Regular Rhythm, Normal S1, Normal S2, No murmurs Abdomen: Bowel Sounds Present, Soft, Non Tender, Non-Distended Extremities: No clubbing, No cyanosis, No edema, Capillary Refill Less than 3 Seconds Skin: No rashes, No breakdown Musculoskeletal: No Tenderness to Palpation of Joints or Extremities Neurological: Cranial nerves II-XII grossly intact, Neuro grossly intact Psych/Mental Status: Normal Affect, Appropriate Vital Signs Temp Pulse Resp BP Pulse Ox 98.2 F 71 16 117/55 L 96 03/04/19 13:16 03/04/19 14:58 03/04/19 13:16 03/04/19 13:16 03/04/19 13:16 Oxygen Flow Rate (L/min) 2 Oxygen Delivery Method Room Air Weight: 154 lb 1.65 oz Body Mass Index (BMI) 23.4 Intake and Output for Last 24 Hours 03/02/19 03/03/19 03/04/19 23:59 23:59 23:59 Intake Total 1267 / 1267 1346 / 1346 Balance 1267 / 1267 1346 / 1346 Laboratory Tests Past 24 Hrs 03/04/19 03/04/19 05:40 05:40 WBC 10.7 RBC 3.83 L Hgb 11.6 L Hct 35.1 L MCV 91.6 MCH 30.3 MCHC 33.0 RDW 13.8 RDW Differential 45.8 H Plt Count 307 MPV 10.0 Sodium 139 Potassium 4.4 Chloride 106 Carbon Dioxide 27.0 Anion Gap 6 BUN 12 Creatinine 0.70 Estim Creat Clear Calc 50.54 Est GFR (MDRD) Af Amer 105 Est GFR (MDRD) Non-Af 87 BUN/Creatinine Ratio 17.0 Glucose 88 Calcium 8.1 L Phosphorus 3.1 Magnesium 2.3 Total Bilirubin 0.30 AST 12 L ALT 16 Alkaline Phosphatase 77 Total Protein 5.1 L Albumin 2.8 L Globulin 2.3 Albumin/Globulin Ratio 1.2 Triglycerides 183 Cholesterol 217 H LDL Cholesterol 121 VLDL Cholesterol 37 HDL Cholesterol 59 Discharge Diet: Low fat/ Low Cholesterol Discharge Activity: Return to Normal Activity Call your doctor if you observe: Shortness of breath, Dizziness, Fainting spells, Chest pain Home Medications: Medications to take at Discharge Gabapentin [Neurontin] 300 mg PO QHS 08/06/16 Linaclotide [Linzess] 1 cap PO DAILY 08/06/16 Nitroglycerin [Nitrostat] 0.4 mg SUBLINGUAL Q5M PRN 08/06/16 Orlistat [Xenical] 60 mg PO DAILY 08/06/16 Acetaminophen 325 mg PO TID PRN PRN 03/03/19 Ascorbic Acid [Vitamin C] 1,000 mg PO DAILY 03/03/19 Besifloxacin HCl [Besivance] 5 ml RIGHT EYE 4X/DAY 03/03/19 Difluprednate [Durezol] 5 ml RIGHT EYE 4X/DAY 03/03/19 Prednisone 5 mg PO DAILY 03/03/19 Sodium Chloride [Krish-128 5%] 1 applic RIGHT EYE QHS 03/03/19 Apixaban [Eliquis] 5 mg PO BID #60 tablet 03/04/19 Diltiazem CD [Cardizem CD] 120 mg PO DAILY #30 capsule 03/04/19 Magnesium Oxide [Mag-Ox 400] 400 mg PO DAILYCM #30 tablet 03/04/19 Following Prescrptions Were Given to Patient: Diltiazem CD [Cardizem CD] 120 mg PO DAILY #30 capsule Magnesium Oxide [Mag-Ox 400] 400 mg PO DAILYCM #30 tablet Apixaban [Eliquis] 5 mg PO BID #60 tablet Primary Care Physician: Milton Zepeda MD [Primary Care Provider] - Please follow up with your Primary Care Physician in: 1 Week Please Follow Up With: Dr. delacruz - Primary Cable Installer When: 1 Week Disposition: Home Minutes spent on discharge:: 35 Patient Condition:: Stable Medical Necessity - Tobacco Use Smoking Status: Never smoker Tobacco Use: Non-smoker Meaningful Use Info Meaningful Use Diagnoses (Choose all that apply): None applicable
== END 2019-03-04 17:39 | disposition home or self-care (01) | DRG 310 ==
LOC: ED 07:49 → PCU 09:29
PROVIDERS: Admitting Provider Internal Medicine; Emergency Provider Emergency Medicine; Family Provider Family Medicine; PCP Family Medicine; Visit Provider Internal Medicine
DX: I48.91 Unspecified atrial fibrillation (principal); I25.10 Atherosclerotic heart disease of native coronary artery without angina pectoris; I10 Essential (primary) hypertension; E78.5 Hyperlipidemia, unspecified; M79.7 Fibromyalgia; K57.90 Diverticulosis of intestine, part unspecified, without perforation or abscess without bleeding; M13.0 Polyarthritis, unspecified; Z90.710 Acquired absence of both cervix and uterus; Z95.1 Presence of aortocoronary bypass graft; Z90.722 Acquired absence of ovaries, bilateral; Z90.79 Acquired absence of other genital organ(s); Z98.61 Coronary angioplasty status; Z90.49 Acquired absence of other specified parts of digestive tract
CPT/HCPCS: 36415; 70496; 70498; 71045; 80048; 80053; 80061; 83735; 83880; 84100; 84443; 84484; 85025; 85027; 85652; 86140; 93005; 93306; 99285; J7030; Q9967; A4216; J2405

== ENCOUNTER 2019-08-30 09:30 | Outpatient (RCR) | payer MEDICARE, OTHER, SELFPAY ==
[2019-03-03 10:02] VITALS: BMI 23.4
--- NOTE | 2019-08-14 14:53 | HP.PTEVAL ---
Patient's Visit Information STORM GARCIA is a 73 year old F referred to Physical Therapy by MAYTE PERSON with a diagnosis of B knee Pain. Date of Evaluation: 08/14/19 Physical Therapist: Palak Rushing DPT - Visit Plan Frequency: 2x /Week Duration: 4 Weeks Plan: Focus on general B LE strength, core s/s, stair training, & decreasing pain. 08/14/19 HEP Prescribed: SLR, SL CLams (BTB), Gastroc Stretch, Seated Hamstring stretch, Supine Bridge - Subjective Findings: Approved for hylauronic acid injection, required to undergo physical therapy treatment first. B knee osteoarthritis & singificant B knee pain L>R. No JESSA. Difficulty with stairs (asc/desc). Describes pain as locking up, grinding. Had meniscus repiars on B knees 3 years ago. Worst: 8/10 Aggravateing factors: Walking, prolonged sitting, stairs Best: 2/10 Relieving factors: heating pad, sitting/resting. Pain subsides after stairs within 5 minutes. Tereso N/T but does have a pricling feeling at times down the duke. Disrupts sleeping - sleeps in recliner, d/t LBP & B Knee pain. Pain localized to ant. knee, surrounding the joint, does have pain that is sharp & shooting up the thigh from the L knee. Pain description/symptoms are same for B knees. Started having R hip pain, staes it is not sciatica, but has started w/ walking. Trouble walking long distances at mall. Recently had B foot pain, refferred for new shoes which has recently relieved all foot pain. occupation: Retired Lives in 2 story home w/ finished basement - frequently asc/desc stairs (50 steps) for laundry & all her crafts downstairs. Leisure acitivities: knitting group, plays piano. Used to jog downhill in past - frequent duke splints during this time. . Very active in the past prior to knee pain. Exercise program: sometimes walks on treadmill at home. PMH/Meds: see chart - Objective Posture: RS, FH - corrected w/ V/C but not maintained. Slouched position when sitting. Gait: B toe-out, unequal weight shift favoring R. Stairs: significant weight shift to R & favors R hip d/t to increased L knee pain w/ WBing on L side. USes both HR to propel self-up to next step. Reciprocal Singificant increase in knee pain L>R with descending. Turns sideways on stairs w/ step-to pattern when descending to alleiviate pain & make easier. HR: WFL w/ UE assist - slight LBP. TR: R 25% diminished - no pain. SLS: L - 2 seconds then LOB corrected by other LE. R - 5 seconds then LOB corrected w/ LE. Pain w/ L SLS. ROM: ankle WFL, Knee WFL - pain at end range, Hip WFL - LBP at end range. Strength: Ankle L/R DF 4-/5 PF 3+/5, Knee R Flex 3+/5, R Ext 4-/5, L Flex 3+/5 L Ext 3+/5, Hip L/R 3+/5. Pain w/ knee & hip strength testing. Core: poor. Flexibility: Gastroc: B - severe, Soleus: b - mild, Hamstring: B - severe. Sensation: wnl to gross b touch. Palpation: TTP B at knee ant. joint line and sup. to knee - Goals Goal 1:: Pt. will be I w/ HEP & progression Goal Time Frame: 4-6 Weeks Goal 2:: Pt. will be asc./desc. stairs w/ a reciprocal pattern & 1 HR. Goal Time Frame: 4-6 Weeks Goal 3:: Pt. will demo 4+/5 B LE strength. Goal Time Frame: 4-6 Weeks Goal 4:: Pt. will maintain proper posture t/o tx session to demo improved core strength. Goal Time Frame: 4-6 Weeks - Rehabilitation Potential Physical Therapy Diagnosis: Presents w/ hypomobility, B LE & core weakness, decreased flexibility, difficulty asc/desc stairs, and pain which leads to difficulty performing ADL's. Rehabilitation Potential: Good - Anticipated Interventions Patient/Client Instruction: Educate patient on: Condition For the Purpose of:: To decrease pain Therapeutic Exercise to Include: Strength training, Endurance training, Flexibilty training, Gait and locomotor training, Active ROM, Dynamic Lumbar Stabilization For the Purpose of:: To improve muscle performance and motor function Cryotherapy (ice pack, ice massage): Yes Thermo therapy (hot pack): Yes For the Purpose of:: To decrease pain Thank you for the opportunity to evaluate your patient. For Medicare and Medicare HMO plans, please review the plan of care and approve it. It will need to be FAXED BACK to us at [phone] for Medicare purposes. For Medicare only, by signing this I certify the plan of care. Please let me know if there are questions or concerns regarding this plan of care. Physician Signature: Date:
--- NOTE | 2019-11-14 10:57 | HP.PT.NRP ---
HP - Discharge Summary (1) - Patient Information STORM GARCIA was seen in my office for initial evaluation on 08/14/19. The following Plan of Care was established for this patient: Initial Frequency: 2x /Week Initial Duration: 4 Weeks - Anticipated Interventions Patient/Client Instruction: Educate patient on: Condition For the Purpose of:: To decrease pain Therapeutic Exercise to Include: Strength training, Endurance training, Flexibilty training, Gait and locomotor training, Active ROM, Dynamic Lumbar Stabilization For the Purpose of:: To improve muscle performance and motor function Cryotherapy (ice pack, ice massage): Yes Thermo therapy (hot pack): Yes For the Purpose of:: To decrease pain This patient was last seen in our office . Pertinent comments regarding their Physical therapy will appear below: Patient has not attended Physical Therapy in over 4 weeks, appropriate for d/c at this time and return to MD for further evaluation as needed. At this point I will be discontinuing this patient from physical therapy. I would be happy to see this patient again in the future if found appropriate by the physician. Thank you! Palak Rushing DPT
== END 2019-08-30 19:00 | disposition home or self-care (01) ==
LOC: PT 09:30
PROVIDERS: Family Provider Family Medicine; PCP Family Medicine
DX: M17.0 Bilateral primary osteoarthritis of knee (principal)
CPT/HCPCS: 97110; 97161

== ENCOUNTER → 2020-04-24 07:38 | Outpatient (CLI) | payer MEDICARE, OTHER, SELFPAY ==
[2019-03-03 10:02] VITALS: BMI 23.4
[2020-04-24 10:12] LABS: Absolute Lymphocyte Count 1.89 X10^3/uL (0.83-4.51); Absolute Neutrophil Count 6.7 X10^3/uL (2.0-7.7); Basophil# 0.04 X10^3/uL; Basophil% 0.4 % (0-1); Eosinophil# 0.01 X10^3/uL; Eosinophils% 0.1 % (0-5); Hemoglobin 12.3 g/dL (12.0-15.0); Lymphocyte # 1.89 X10^3/ul (4.0); Lymphocyte % 20.1 % (19-41); Mean Corp Hgb Conc 31.5 g/dL (32-36); Mean Corpuscular Hgb 29.7 pg (27.0-32.0); Mean Corpuscular Volume 94.2 fL (81-99); Mean Platelet Vol. 10.3 fl (6.2-12.0); Monocyte# 0.76 X10^3/uL; Monocyte% 8.1 % (0-10); NRBC Flagged by Analyzer 0 % (0-5); Neutrophil # 6.67 X10^3/uL (2.7-7.7); Neutrophil % 70.8 % (47-70); Platelet Count 376 K/mm3 (150-450); RBC Distribution Width CV 13.2 % (11.6-14.6); RBC Distribution Width SD 45.3 fl (35.1-43.9); Red Blood Count 4.14 M/mm3 (4.2-5.4); White Blood Count 9.4 K/mm3 (4.4-11.0)
[2020-04-24 10:39] LABS: AST(SGOT) 16 U/L (15-37); Alanine Aminotransfer ALT/SGPT 19 U/L (13-56); Albumin, Serum 3.7 g/dL (3.2-5.0); Alkaline Phosphatase 97 U/L (45-117); Anion Gap 9 (5-15); BUN 19 mg/dL (7-18); BUN/Creat Ratio 22.9 RATIO (10-20); Bilirubin, Direct < 0.05 mg/dL (0.00-0.30); Calcium,Total 9.3 mg/dL (8.5-10.1); Chloride 102 mmol/L (98-107); Creatinine, Serum 0.83 mg/dL (0.55-1.02); EST Glomerular Filtration Rate 71 mL/min (>60); Est Glom Filt Rate - Afr Amer 86 mL/min (>60); Glucose 88 mg/dL (74-106); Potassium 3.2 mmol/L (3.5-5.1); Protein, Total 6.7 g/dL (6.4-8.2); Sodium Level 137 mmol/L (136-145)
[2020-04-24 10:52] LABS: HIV - WCH Non-Reactive (Nonreactive); Hepatitis B Surface Antibody Non-Reactive; Hepatitis B Surface Antigen Non-Reactive (Nonreactive); Hepatitis C Antibody Non-Reactive (Nonreactive)
[2020-04-28 20:07] LABS: QNTFERON TB Mitogen Value > 10.00 IU/mL (.); QNTFERON TB Nil Value 0.17 IU/mL (.); QNTFERON TB1+ Ag Value 0.15 IU/mL (.); QNTFERON TB2+ Ag Value 0.11 IU/mL (.)
[2020-04-29 05:31] LABS: Hepatitis B Core AB IgM Negative (Negative); QNTIFERON TB Positive Criteria Negative (Negative)
== END ==
PROVIDERS: PCP Internal Medicine; Referring Provider Dermatology; Visit Provider Dermatology
DX: L12.0 Bullous pemphigoid (principal); L29.8 Other pruritus; Z79.899 Other long term (current) drug therapy
CPT/HCPCS: 36415; 80048; 80076; 85025; 86480; 86703; 86705; 86706; 86803; 87340

== ENCOUNTER → 2020-05-11 13:24 | Outpatient (CLI) | payer MEDICARE, OTHER, SELFPAY ==
[2019-03-03 10:02] VITALS: BMI 23.4
[2020-05-11 14:14] LABS: Absolute Lymphocyte Count 1.79 X10^3/uL (0.83-4.51); Absolute Neutrophil Count 5.4 X10^3/uL (2.0-7.7); Basophil# 0.05 X10^3/uL; Basophil% 0.6 % (0-1); Eosinophil# 0.01 X10^3/uL; Eosinophils% 0.1 % (0-5); Hematocrit 39.7 % (37-47); Hemoglobin 12.7 g/dL (12.0-15.0); Lymphocyte # 1.79 X10^3/ul (4.0); Lymphocyte % 22.3 % (19-41); Mean Corpuscular Hgb 30.8 pg (27.0-32.0); Mean Corpuscular Volume 96.4 fL (81-99); Mean Platelet Vol. 9.8 fl (6.2-12.0); Monocyte# 0.75 X10^3/uL; Monocyte% 9.3 % (0-10); NRBC Flagged by Analyzer 0 % (0-5); Neutrophil # 5.42 X10^3/uL (2.7-7.7); Neutrophil % 67.5 % (47-70); Platelet Count 357 K/mm3 (150-450); RBC Distribution Width CV 13.8 % (11.6-14.6); Red Blood Count 4.12 M/mm3 (4.2-5.4)
[2020-05-11 14:40] LABS: AST(SGOT) 17 U/L (15-37); Alanine Aminotransfer ALT/SGPT 19 U/L (13-56); Albumin, Serum 3.7 g/dL (3.2-5.0); Alkaline Phosphatase 103 U/L (45-117); Anion Gap 5 (5-15); BUN 18 mg/dL (7-18); BUN/Creat Ratio 16.7 RATIO (10-20); Chloride 105 mmol/L (98-107); Creatinine, Serum 1.08 mg/dL (0.55-1.02); EST Glomerular Filtration Rate 53 mL/min (>60); Est Glom Filt Rate - Afr Amer 64 mL/min (>60); Glucose 112 mg/dL (74-106); Potassium 3.7 mmol/L (3.5-5.1); Protein, Total 6.7 g/dL (6.4-8.2); Sodium Level 139 mmol/L (136-145)
== END ==
PROVIDERS: PCP Internal Medicine; Referring Provider Dermatology; Visit Provider Dermatology
DX: Z79.899 Other long term (current) drug therapy (principal)
CPT/HCPCS: 36415; 80048; 80076; 85025

== ENCOUNTER 2020-08-04 09:30 | Outpatient (RCR) | payer MEDICARE, OTHER, SELFPAY ==
[2019-03-03 10:02] VITALS: BMI 23.4
--- NOTE | 2020-07-21 10:28 | HP.PTEVAL ---
Patient's Visit Information STORM GARCIA is a 74 year old F referred to Physical Therapy by MAYTE PERSON with a diagnosis of MYALGIA AND CHRONIC PAIN OF CERVICAL, THORACIC AND LUMBAR SPINE.. Date of Evaluation: 07/21/20 Physical Therapist: Alice Ledezma, PT, Cert MDT - Visit Plan Frequency: 2-3x /Week Duration: 4-6 Weeks Plan: AQUATIC THERAPY FOR PAIN RELIEF, GAIT AND TRANSFER TRAINING, POSTURE CORRECTION/STRENGTHENING, INSTRUCTION IN APPROPRIATE BODY MECHANICS AND ACTIVITY MODIFICATIONS. DLS STARTING WITH A NEUTRAL SPINE PROGRESSING ROM TOLERATED. TONY LE ROM, STRETCHING AND STRENGTHENING. HEP INSTRUCTION. - Subjective Work/Leisure: RETIRED. Present symptoms: MID AND LOW BACK PAIN THAT RADIATES TO THE RIGHT CAUSING HER TO BEND FORWARD WHEN SHE WALKS BECAUSE THE PAIN GETS SO BAD. SOMETIMES HAS FOOT NUMBESS AND TINGLING IN TOES. STABBING PAINS RIGHT BUTTOCK, THIGH AND TO ANKLE. STATES SHE NEEDS A LEFT KNEE REPLACEMENT. Present since: CHRONIC BUT IN APRIL FELL AT HOME IN BATHROOM. FELL BACKWARDS OVER THE EDGE OF THE TUB. NO FX'S OR SX SINCE THE FALL. IT JUST TOOK AWHILE TO HEAL. Pain Scale: WORSE 9/10, LEAST 2/10. Currently: 3/10. Commenced as a result of: FALL. Worse: STANDING, WALKING, RIDING IN THE CAR, LYING IN BED AT NIGHT, LIFTING. Better: IBUPROFEN, TRAMADOL, PILLOW BEHIND BACK WHILE LYING ON RIGHT SIDE, RECLINER. Disturbed sleep: YES. Previous history/Previous treatment: HAS HAD 7 SPINE SURGERIES - SEE IMAGING RESULTS BELOW. PT. MASSAGE. NO CHIRO. HOLLY'S. ABLATION SX TO BURN THE NERVE L1L2 BEGINNING OF JUN 2020 DR. PERSON - PAIN CLINIC IN [facility] - MADE IT WORSE. Coughing/sneezing/straining: POSITIVE. Gait: HAS BEEN WALKING ON THE TREADMILL BUT CAN ONLY GO 1/4 MILE. Difficulty initiating urinatin: NO. Accidents: FALLS. Unexplained weight loss: NO. Imagin10/24/19: EVIDENCE OF PRIOR SPINAL FUSION OF L2,L3, L4. ANEROLISTHESIS OF L4 IN REFERENCE TO L5. MULTILEVEL DEGENERATIVE DISC AND ENDPLATE CHANGES. DORSAL SPINE: MILD TO MODERATE DEGENERATIVE ENDPLATE CHANGES. CT THORACIC SPINE 05/28/20: NO CENTRAL CANAL STENOSIS, S/P ACDF C56 WITH INTERVENING CAGE GRAFT, S/P POSTERIOR FUSION C3-C7 WITH TONY PEDICLE SCREWS AND VERTICAL STABILIZATION RODS, L2-L5 POSTERIOR FUSION. PMH: 2 HEART STENTS APR 01 2020, A-FIB - HEART ABLASION RECOMMENDED. 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 OTHER: PATIENT REPROTS THE DOCTOR WANTS TO TRY PT BEFORE THEY DO ANOTHER RFA ON THE OTHER SIDE (LEFT) - THE RIGHT RFA (RADIO FREQUENCEY ABLASION) MADE IT WORSE. - Objective Sitting/Standing Posture: POOR. FH. ROUNDED SHLDS. SCOLIOSIS. Lordosis: REDUCED. Active Correction of Posture: WORSE. Other Observations: INDEP GAIT INTO PT WITHOUT ANY ASSISTIVE DEVICES, FAIR CADANCE, NO LOB AND MILD INCREASED TRUNK FLEXION. PATIENT IS UNABLE TO TRANSFER FROM SIT TO STAND WITHOUT UE ASSIST. Motor deficit: TONY UE AND LE STRENGTH GROSSLY 4/5 WITH MMT'ING. ROM deficit: TONY UE AND LE STRENGTH WFL. Reflexes: NT. Lumbar mvmt loss: flex - NIL. ext - PAULA. R SG - PAULA. L SG - PAULA. PATIENT WITH C/O PAIN WITH LUMBAR ROM TESTING ALL PLANES. CERVICAL MVMT LOSS: FLEX - MIN. PRO - NIL. EXT - PAULA. RET - PAULA. RSB - PAULA. LSB - PAULA. R ROT - MOD TO PAULA. L ROT - MOD TO PAULA. THORACIC MVMT LOSS: TONY ROT - PAULA. VERY LIMITED NECK AND THROACIC ROM WITH ERP. Core strength: POOR. TREATMENT: NEUROMUSCULAR REEDUCATION - RETRAINING OF MVMT AND POSTURE FOR SITTING, LYING AND STANDING ACTIVITIES. - Goals Goal 1:: DECREASE C/O SPINE PAIN Goal Time Frame: 4-6 Weeks Goal 2:: IMPROVE PERSONAL CARE, LIFTING, WALKING, SITTING, STANDING, SLEEP, SOCIAL LIFE, TRAVEL AND HOMEMAKING FUNCTION. Goal Time Frame: 4-6 Weeks Goal 3:: INSTRUCT IN PROPHYLAXIS Goal Time Frame: 4-6 Weeks - Anticipated Interventions Patient/Client Instruction: Educate patient on: Condition, Plan of Care, Risk Factors, Benefits of Fitness Program For the Purpose of:: To improve self management Therapeutic Exercise to Include: Strength training, Body mechanics, Postural training, Flexibilty training, Neuromotor development, In an aquatic setting, Dynamic Lumbar Stabilization For the Purpose of:: To decrease pain, To increase ROM, To improve muscle performance and motor function, To increase tolerance to activity/condition/position, To improve ability of physical actions for home/community/work/leisure, To improve gait and locomotor functions Thank you for the opportunity to evaluate your patient. For Medicare and Medicare HMO plans, please review the plan of care and approve it. It will need to be FAXED BACK to us at [phone] for Medicare purposes. For Medicare only, by signing this I certify the plan of care. Please let me know if there are questions or concerns regarding this plan of care. Physician Signature: Date:
--- NOTE | 2020-09-21 17:45 | HP.PT.NRP ---
STROM GARCIA was seen in my office for initial evaluation on 07/21/20. The following Plan of Care was established for this patient: Initial Frequency: 2-3x /Week Initial Duration: 4-6 Weeks Patient/Client Instruction: Educate patient on: Condition, Plan of Care, Risk Factors, Benefits of Fitness Program For the Purpose of:: To improve self management Therapeutic Exercise to Include: Strength training, Body mechanics, Postural training, Flexibilty training, Neuromotor development, In an aquatic setting, Dynamic Lumbar Stabilization For the Purpose of:: To decrease pain, To increase ROM, To improve muscle performance and motor function, To increase tolerance to activity/condition/position, To improve ability of physical actions for home/community/work/leisure, To improve gait and locomotor functions This patient was last seen in our office 08/04/20. Pertinent comments regarding their Physical therapy will appear below: This patient has not returned to Physical Therapy and is appropriate to return to MD for further follow-up as needed. At this point I will be discontinuing this patient from physical therapy. I would be happy to see this patient again in the future if found appropriate by the physician. Thank you! Alice Ledezma, PT, Cert MDT
== END 2020-08-04 19:00 | disposition home or self-care (01) ==
LOC: PT 09:30
PROVIDERS: PCP Internal Medicine
DX: M79.18 Myalgia, other site (principal); G89.29 Other chronic pain
CPT/HCPCS: 97112; 97113; 97162

== ENCOUNTER 2020-12-21 14:23 | Outpatient (RCR) | payer MEDICARE, OTHER, SELFPAY ==
[2020-08-26 10:01] VITALS: BMI 22.4
== END 2020-12-21 23:59 ==
LOC: IMMUN 14:23
PROVIDERS: PCP Family Medicine; Visit Provider Family Medicine
DX: Z23 Encounter for immunization (principal)
CPT/HCPCS: 0011A; 0012A; 91301

== ENCOUNTER 2021-06-05 09:37 | Emergency (ER) | payer MEDICARE, OTHER, SELFPAY ==
[2020-08-26 10:01] VITALS: BMI 22.4
[2021-06-05 09:38] VITALS: BP 189/87; PULSE 160; RESP 18; TEMP 36.7; O2SAT 98; BMI 21.7
--- NOTE | 2021-06-05 09:45 | EKG12_ITS ---
Test Reason : CP Blood Pressure : / mmHG Vent. Rate : 097 BPM Atrial Rate : 097 BPM P-R Int : 164 ms QRS Dur : 084 ms QT Int : 362 ms P-R-T Axes : 059 025 066 degrees QTc Int : 459 ms Normal sinus rhythm Normal ECG Confirmed by RENARD MCCULLOUGH, REBECCA ([id number]), greeting card editor HUSSEIN FERNANDES ([id number]) on 06/07/2021 2:21:55 PM Referred By: VICTOR M Confirmed By:REBECCA GLYNN MD
[2021-06-05 09:55] LABS: Absolute Neutrophil Count 11.2 X10^3/uL (2.0-7.7); Basophil# 0.06 X10^3/uL; Basophil% 0.4 % (0-1); Eosinophil# 0.04 X10^3/uL; Eosinophils% 0.3 % (0-5); Hematocrit 45.6 % (37-47); Hemoglobin 14.3 g/dL (12.0-15.0); Lymphocyte % 10.9 % (19-41); Mean Corp Hgb Conc 31.4 g/dL (32-36); Mean Corpuscular Hgb 29.5 pg (27.0-32.0); Mean Corpuscular Volume 94.2 fL (81-99); Mean Platelet Vol. 10.2 fl (6.2-12.0); Monocyte# 0.89 X10^3/uL; Monocyte% 6.5 % (0-10); NRBC Flagged by Analyzer 0 % (0-5); Neutrophil # 11.17 X10^3/uL (2.7-7.7); Neutrophil % 81.2 % (47-70); Platelet Count 402 K/mm3 (150-450); RBC Distribution Width CV 13.6 % (11.6-14.6); RBC Distribution Width SD 47.7 fl (35.1-43.9); Red Blood Count 4.84 M/mm3 (4.2-5.4); White Blood Count 13.8 K/mm3 (4.4-11.0)
[2021-06-05 10:08] LABS: Anion Gap 8 (5-15); BUN 20 mg/dL (7-18); BUN/Creat Ratio 19.2 RATIO (10-20); Calcium,Total 9.2 mg/dL (8.5-10.1); Chloride 108 mmol/L (98-107); Creatinine, Serum 1.04 mg/dL (0.55-1.02); EST Glomerular Filtration Rate 55 mL/min (>60); Est Glom Filt Rate - Afr Amer 66 mL/min (>60); Estimated Creatinine Clearance 47.15 ml/min; Glucose 95 mg/dL (74-106); Potassium 3.8 mmol/L (3.5-5.1); Sodium Level 142 mmol/L (136-145); Troponin-I HS 6.5 pg/mL (3.0-53.7)
[2021-06-05] MEDS: dilTIAZem 30 MG Tablet 15 MG PO (10:13)
--- NOTE | 2021-06-05 10:20 | RAD_ITS ---
STUDY: X-RAY CHEST REASON FOR EXAM: Female, 75 years old. chest pain TECHNIQUE: Single AP portable view of the chest. COMPARISON: 08/03/2020 FINDINGS: Sternotomy wires are midline. The lungs are clear and expanded. There is no demonstrated pleural abnormality. Normal size heart. Normal mediastinum and jessica. Normal visualized pulmonary arteries. Normal visualized aortic arch and descending thoracic aorta. Normal visualized thoracic spine. Normal visualized ribs, clavicles, and shoulders. There is no demonstrated abnormality of the visualized soft tissue structures of the upper abdomen. RAD/Chest 1 View (Portable) IMPRESSION: No evidence of acute cardiopulmonary process. Electronically Signed: Mahesh Mccain DO at 10:39 EDT , Service support ,
--- NOTE | 2021-06-05 11:29 | EDS_ITS ---
HPI History of Present Illness Chief Complaint: Chest Pain Narrative Narrative: Patient presenting for evaluation secondary to chest pain and atrial fibrillation. Patient has a underlying history of rhythm controlled atrial fibrillation she is not on formal anticoagulation does take antiplatelet agents. Patient states that today she felt herself flip into atrial fibrillation. This was associated with a feeling of palpitations and chest pain. She denies any shortness of breath. Patient takes a low-dose of Cardizem typically, she did take her dose today denies any missed doses or any changes in her medications. She denies recent illness. Review of systems otherwise negative [facility] Medical History 2 stents 2 stents LAD Angioplasty [facility] Angioplasty [facility] Angioplasty [facility] Angioplasty [facility]ant Angioplsty [place] Angioplty [facility] Arthritis Back pain Bowel obstruction- surgery for adhesions [place], [place] Bullous pemphigoid C-3 to T-1 fusion [facility] C4-5 Fusion [place] C5-6 Discectomy [place] C6-7 Discectomy [facility] Chest pain Difficulty balancing when standing Gallbladder H/o blood or blood products H/o Sphincteroplasty of bile ducts H/o T & A Heart Cath Heart disease Knee pain L-2L5 fusion [facility] L3-4 fusion [facility] L4-5 fusion [facility] Left Knee meniscus arthroplasty Limb weakness Meniscus Arthroscopy R Knee Mesenric Stent Partial colectomy with anastomosis [place] Repeat of meniscus [place] Mesenteric ngioplasty Triple Bypass Wrist psiform arthroplasty [facility] Home Medications gabapentin 300 mg PO QHS 08/06/16 [History Last Taken 08/25/20] linaclotide [Linzess] 1 cap PO DAILY 08/06/16 [History Last Taken 08/25/20] nitroglycerin 0.4 mg SUBLINGUAL Q5M PRN 08/06/16 [History Last Taken 08/25/20] acetaminophen 325 mg PO TID PRN PRN 03/03/19 [History Last Taken 08/25/20] prednisone 7 mg PO DAILY 03/03/19 [History Last Taken 08/25/20] aspirin 81 mg tablet,delayed release 81 mg PO DAILY 08/03/20 [History Last Taken 08/22/20] clopidogrel 75 mg tablet 37.5 mg PO DAILY PRN tab 08/03/20 [History Last Taken 08/25/20] diltiazem HCl 30 mg tablet 15 tab PO PRN PRN 08/03/20 [History Last Taken 08/25/20] famotidine 20 mg tablet 20 mg PO DAILY 08/03/20 [History Last Taken 08/25/20] folic acid 1 mg tablet 1 mg PO DAILY 08/03/20 [History Last Taken 08/25/20] ibuprofen 200 mg tablet 200 mg PO Q6H PRN 08/03/20 [History Last Taken 08/25/20] tramadol 50 mg tablet 50 mg PO PRN PRN tab 08/03/20 [History Last Taken 08/25/20] Allergy/AdvReac Type Severity Reaction Status Date / Time almond Allergy Severe Anaphylaxis Verified 06/05/21 09:41 amiodarone Allergy Severe Anaphylaxis Verified 06/05/21 09:41 Pxnxbnr-Wlu-Siu Reductase Allergy Mild Other Verified 06/05/21 09:41 Inhibitor dabigatran etexilate Allergy Abd Verified 06/05/21 09:41 [From Pradaxa] cramps/diarrhea diazepam [From Valium] AdvReac Severe Low blood Verified 06/05/21 09:41 pressure morphine AdvReac Severe Low blood Verified 06/05/21 09:41 pressure lorazepam [From Ativan] AdvReac Intermediate Other Verified 06/05/21 09:41 methotrexate AdvReac DIZZINESS Verified 06/05/21 09:41 Family History Father Arthritis Mother Amyloidosis Glaucoma Sister Polymyalgia rheumatica Glaucoma Other Heart disease Primary amyloidosis Surgical History H/O angioplasty H/O heart artery stent H/O: hysterectomy Social History household members: spouse housing: house Smoking Status: Never smoker alcohol intake: never what type of physical activity do you participate in: walking do you feel safe at home: Yes ROS ROS ED Constitutional Constitutional ED: Denies fever(s) Eyes Eyes: Denies change in vision ENT ENT ED: Denies rhinorrhea or sore throat Cardiovascular Cardiovascular: Reports as per HPI, chest pain and palpitations Respiratory/Chest Respiratory/Chest: Denies cough, dyspnea or dyspnea on exertion Gastrointestinal Gastrointestinal: Denies abdominal pain, nausea or vomiting Genitourinary Genitourinary ED: Denies dysuria Musculoskeletal Musculoskeletal: Denies myalgias or neck pain Integumentary Denies rash Neurologic Neurologic: Denies headache(s), paresthesias or weakness Psychiatric Psychiatric: Denies depression Endocrine Endocrinology: Denies polydipsia or polyuria Hematologic/Lymphatic Hematologic/Lymphatic: Denies easy bleeding or easy bruising Allergic/Immunologic Allergic/Immunologic ED: Denies urticaria EXAM Physical Exam Const Vital Signs: 06/05/21 09:38 06/05/21 09:50 06/05/21 11:34 Temperature 98.1 F Temperature Source Oral Pulse Rate 160 H 69 Respiratory Rate 18 20 H Blood Pressure 189/87 H 135/68 H Blood Pressure Mean 121 90 Pulse Ox 98 98 Oxygen Delivery Method Room Air Room Air Room Air Positive well nourished and well developed General Appearance ED: well developed and NAD HEENT Reports moist mucous membranes normocephalic and atraumatic Eyes EOMs intact bilaterally Neck no lymphadenopathy, supple and no JVD Chest Wall inspection of chest normal and palpation of chest normal Chest Narrative: No evidence of vesicular rash Resp normal respiratory effort and clear to auscultation bilaterally Auscultation: Negative for rales, rhonchi or wheezes Cardio S1 normal heart sound, S2 normal heart sound and no murmurs Rate: tachycardic Rhythm: abnormal rhythm irregularly irregular Peripheral Pulses: radial pulses present and posterior tibial pulses present GI normal to inspection, nondistended, normoactive bowel sounds, soft to palpation and non-tender Extremity normal to inspection Extremity Narrative: Calves are supple no palpable cord General Extremety ED: Negative for edema or tenderness General Extremity: Negative for edema Neuro oriented x3 and no sensory deficits noted Sensorium / Orientation: awake and alert Motor Exam: strength abnormal Psych mental status grossly normal Skin no rashes or lesions noted Heart Score History: Slightly/Non-Suspicious ECG: Normal Age: >/= 65 years Risk Factors: >/= 3 Risk Factors or History of CAD Troponin: </= Normal Limit Score: 4 MDM MDM MDM Narrative Medical decision making narrative: Patient presented secondary to chest pain resulting from a rhythm change into atrial fibrillation. On presentation the patient was in atrial fibrillation, but she spontaneously converted she was given oral Cardizem. Patient's work-up showed her to have a leukocytosis at 13.8. Chemistry was unremarkable. High-sensitivity troponin was 6.5 and then 2-hour delta was at 8.0. Chest x-ray by my personal review as well as radiology was found to be negative. Patient remained in sinus rhythm and asymptomatic while she was in the emergency department and has a reassuring high-sensitivity troponin I would believe that she requires admission at this point. Patient was recommended to follow-up with her [employer] this week. She was discharged in stable condition. Lab Data Labs: Laboratory Results - last 24 hr 06/05/21 06/05/21 06/05/21 09:15 09:15 11:40 WBC 13.8 H RBC 4.84 Hgb 14.3 Hct 45.6 MCV 94.2 MCH 29.5 MCHC 31.4 L RDW Std Deviation 47.7 H RDW Coeff of Zen 13.6 Plt Count 402 MPV 10.2 Immature Gran % (Auto) 0.700 Neut % (Auto) 81.2 H Lymph % (Auto) 10.9 L Edmunds % (Auto) 6.5 Eos % (Auto) 0.3 Baso % (Auto) 0.4 Absolute Neuts (auto) 11.2 H Absolute Lymphs (auto) 1.50 Nucleated RBC % 0 Sodium 142 Potassium 3.8 Chloride 108 H Carbon Dioxide 26.0 Anion Gap 8 BUN 20 H Creatinine 1.04 H Estim Creat Clear Calc 47.15 Est GFR (MDRD) Af Amer 66 Est GFR (MDRD) Non-Af 55 L BUN/Creatinine Ratio 19.2 Glucose 95 Calcium 9.2 Troponin I High Sens 6.5 8.0 Radiography Chest X-Ray - ED: 1 View and Chronic Changes Diagnostic Testing: Radiology Impression Chest X-Ray 06/05/21 10:20 IMPRESSION: No evidence of acute cardiopulmonary process. Electronically Signed: Mahesh DO Adán at 10:39 EDT , Service support , Rhythm Strip Rhythm Strip: A-fib Rate: 150 Ectopy: None EKG Initial EKG: Attestation: I personally reviewed and interpreted this EKG as follows: (Sinus rhythm of [address] segments, there is some T wave inversion noted in lead V2 that was present on prior EKG. Incomplete right bundle branch block morphology is also noted that was present on a prior EKG.) Discharge Plan Triage Chief Complaint: Chest Pain ED Provider: Terence Landis Dx/Rx/DC Orders Clinical Impression: Paroxysmal A-fib Instructions: ED AFIB Prescriptions: No Action tramadol 50 mg tablet 50 mg PO PRN PRN (Reason: BACK PAIN) RF: 0 clopidogrel 75 mg tablet 37.5 mg PO DAILY PRN (Reason: a-fib) RF: 0 folic acid 1 mg tablet 1 mg PO DAILY RF: 0 diltiazem HCl 30 mg tablet 15 tab PO PRN PRN (Reason: a-fib) RF: 0 aspirin 81 mg tablet,delayed release (DR/EC) 81 mg PO DAILY RF: 0 ibuprofen 200 mg tablet 200 mg PO Q6H PRN (Reason: Pain Or Fever) RF: 0 famotidine [Pepcid] 20 mg tablet 20 mg PO DAILY RF: 0 nitroglycerin 0.4 MG tablet 0.4 mg sublingual Q5M PRN (Reason: Chest Pain) RF: 0 gabapentin 100 MG capsule 300 mg PO QHS RF: 0 Linzess 145 MCG capsule 1 cap PO DAILY RF: 0 prednisone 5 MG tablet 7 mg PO DAILY RF: 0 acetaminophen 325 MG tablet 325 mg PO TID PRN PRN (Reason: Pain) RF: 0 Primary Care Provider: Linda Bhakta Referrals: Linda Bhakta [Primary Care Provider] - Activity Restrictions/Additional Instructions: Followup with Dr. Land Disposition Disposition: Home, Self Care
[2021-06-05 11:34] VITALS: BP 135/68; PULSE 69; RESP 20; O2SAT 98
[2021-06-05 12:35] VITALS: BP 142/76; PULSE 60; RESP 15; O2SAT 97
== END 2021-06-05 12:36 | disposition home or self-care (01) ==
PROVIDERS: Emergency Provider Emergency Medicine; PCP Family Medicine
DX: I48.0 Paroxysmal atrial fibrillation (principal); M19.90 Unspecified osteoarthritis, unspecified site; Z95.1 Presence of aortocoronary bypass graft; Z95.5 Presence of coronary angioplasty implant and graft; Z79.01 Long term (current) use of anticoagulants; Z79.82 Long term (current) use of aspirin; Z79.899 Other long term (current) drug therapy
CPT/HCPCS: 71045; 80048; 84484; 85025; 93005; 99284; A4216

== ENCOUNTER → 2021-10-11 09:27 | Outpatient (CLI) | payer MEDICARE, OTHER, SELFPAY ==
[2021-10-11 12:23] LABS: ALB/GLOB Ratio 1.2 RATIO (0.9-2.4); AST(SGOT) 15 U/L (15-37); Alanine Aminotransfer ALT/SGPT 19 U/L (13-56); Albumin, Serum 3.6 g/dL (3.2-5.0); Alkaline Phosphatase 94 U/L (45-117); Anion Gap 4 (5-15); BUN 26 mg/dL (7-18); BUN/Creat Ratio 21.3 RATIO (10-20); Calcium,Total 9.4 mg/dL (8.5-10.1); Chloride 108 mmol/L (98-107); Creatinine, Serum 1.22 mg/dL (0.55-1.02); EST Glomerular Filtration Rate 46 mL/min (>60); Est Glom Filt Rate - Afr Amer 55 mL/min (>60); Globulin 3.1 g/dL (2.2-4.2); Glucose 93 mg/dL (74-106); Protein, Total 6.7 g/dL (6.4-8.2); Sodium Level 140 mmol/L (136-145); Thyroid Stim Hormone (TSH) 0.92 uIU/mL (0.358-3.74)
[2021-10-11 13:07] LABS: Vitamin D,25 Hydroxy 14.8 ng/mL
== END ==
PROVIDERS: PCP Family Medicine; Referring Provider Internal Medicine Endocrinology, Diabetes & Metabolism; Visit Provider Internal Medicine Endocrinology, Diabetes & Metabolism
DX: I48.91 Unspecified atrial fibrillation (principal); E55.9 Vitamin D deficiency, unspecified; M81.0 Age-related osteoporosis without current pathological fracture
CPT/HCPCS: 36415; 80053; 82306; 83970; 84443

== ENCOUNTER → 2021-10-26 | Outpatient (CLI) | payer MEDICARE, OTHER, SELFPAY ==
--- NOTE | 2021-10-26 | LES_PTH ---
PATIENT: STORM GARCIA LOC: [facility] U#:[id number] AGE/SX: 75/F ROOM: RE10/26/[address]: Dr. Og Crum MD : 1945 BED: DIS: 10/26/2021 SPEC #: [id number] RECD: 10/26/21 10:22 STATUS: FAITH BRANDT #: [id number] TOMER: 10/26/21 00:[address]: Og Crum DEPT: SURGICAL PATHOLOGY RECD BY: Hiren Davison ENTERED: 10/26/21 13:00 SP TYPE: Lesion OTHR DR: Linda Bhakta Tissues: Skin of face, NOS Procedures: Surgery Specimen Level IV HEADER OPERATION: Lesion removal left brow area PRE-OP DIAGNOSIS: Sebaceous keratosis vs papilloma TISSUE SUBMITTED: Left brow lesion MICROSCOPIC DIAGNOSIS Lesion of left brow, biopsy: Polypoid seborrheic keratosis, hyperkeratotic type. AM:alvino 10/27/2021 MICROSCOPIC DESCRIPTION Slides are reviewed. GROSS DESCRIPTION Received in fixative is one container labeled with the patient's name and designated left brow. The specimen consists of an irregular fragment of light melendez-white soft tissue measuring 0.5 x 0.2 x 0.1 cm. The specimen is totally submitted in one cassette. / KAYLI:alvino 10/26/21 TC:5 CPT: 45065
== END | disposition home or self-care (01) ==
PROVIDERS: PCP Family Medicine; Referring Provider Ophthalmology; Visit Provider Ophthalmology
DX: L82.1 Other seborrheic keratosis (principal)
CPT/HCPCS: 88305

== ENCOUNTER → 2021-11-16 09:01 | Outpatient (CLI) | payer MEDICARE, OTHER, SELFPAY ==
--- NOTE | 2021-11-16 09:07 | BD_ITS ---
STUDY: DUAL ENERGY X-RAY ABSORPTIOMETRY / DXA REASON FOR EXAM: Female, 75 years old. Osteoporosis TECHNIQUE: Bone Mineral Density (BMD) measurements of left forearm and bilateral hips were obtained. COMPARISON: Comparison is made with prior study dated 02/03/2011. FINDINGS: Left Femur Total: g/cm2 (0.626) / T-score (-2.6) / Z-score (-0.8) Left Femoral Neck: g/cm2 (0.520) / T-score (-3.0) / Z-score (-0.8) Right Femur Total: g/cm2 (0.675) / T-score (-2.2) / Z-score (-0.4) Right Femoral Neck: g/cm2 (0.585) / T-score (-2.4) / Z-score (-0.3) Left Forearm: g/cm2 (0.443) / T-score (-2.5) / Z-score (0.0) The T-Scores on the most recent prior examination were: Left Femur Total: which represents a worsening of 23.8%. Right Femur Total: which represents a worsening of 19%. BD/Dexa Bone Density Study IMPRESSION: The patient is considered osteoporotic as outlined below according to World Grant Organization (WHO) criteria with a high fracture risk. There has been worsening of bone density since the previous examination. Reference Information: The T-score is the number of standard deviations above or below the standard which is normal for young adults at their peak bone mineral density. The World Health Organization (WHO) interprets the T-scores as follows: Above -1 Normal bone density Between -1 and -2.5 Osteopenia Equal to / or below -2.5 Osteoporosis As a practical clinical guideline, osteopenia may be graded as follows: Mild -1 through -1.5 Moderate -1.6 through -2.0 Severe -2.1 through -2.4 The Z-score is the number of standard deviations above or below age-matched controls. A Z-score of less than -1.5 would be considered abnormal. References: 1. NIH Osteoporosis and Related Bone Diseases www osteo.org 2. International Society for Clinical Densitometry www iscd.org 3. National Osteoporosis Foundation www nof.org Electronically Signed: Fernando Olivas MD at 14:53 EST , Service support ,
== END ==
PROVIDERS: PCP Family Medicine; Referring Provider Internal Medicine Endocrinology, Diabetes & Metabolism; Visit Provider Internal Medicine Endocrinology, Diabetes & Metabolism
DX: M81.0 Age-related osteoporosis without current pathological fracture (principal)
CPT/HCPCS: 77080

== ENCOUNTER 2022-01-02 10:12 | Emergency (ER) | payer MEDICARE, OTHER, SELFPAY ==
[2022-01-02 10:12] VITALS: BP 114/68; PULSE 115; RESP 16; TEMP 35.5; O2SAT 98; BMI 19.4
[2022-01-02 10:20] VITALS: O2SAT 97
--- NOTE | 2022-01-02 10:20 | EKG12_ITS ---
Test Reason : A-FIB Blood Pressure : / mmHG Vent. Rate : 106 BPM Atrial Rate : 375 BPM P-R Int : 000 ms QRS Dur : 082 ms QT Int : 338 ms P-R-T Axes : 000 014 011 degrees QTc Int : 448 ms Atrial fibrillation Nonspecific ST abnormality Abnormal ECG Confirmed by AUDRA MCCULLOUGH, DEVON ([id number]), makeup editor HUSSEIN FERNANDES ([id number]) on 01/04/2022 12:43:32 PM Referred By: BENY Confirmed By:DEVON ZHU MD
[2022-01-02 10:42] LABS: Absolute Lymphocyte Count 1.92 X10^3/uL (0.83-4.51); Absolute Neutrophil Count 5.9 X10^3/uL (2.0-7.7); Basophil# 0.09 X10^3/uL; Eosinophil# 0.17 X10^3/uL; Eosinophils% 1.9 % (0-5); Hematocrit 40.3 % (37-47); Hemoglobin 12.6 g/dL (12.0-15.0); Lymphocyte # 1.92 X10^3/ul (0.83-4.51); Lymphocyte % 20.9 % (19-41); Mean Corp Hgb Conc 31.3 g/dL (32-36); Mean Corpuscular Hgb 29.6 pg (27.0-32.0); Mean Corpuscular Volume 94.6 fL (81-99); Monocyte# 1.08 X10^3/uL; Monocyte% 11.8 % (0-10); NRBC Flagged by Analyzer 0 % (0-5); Neutrophil # 5.87 X10^3/uL (2.7-7.7); Platelet Count 353 K/mm3 (150-450); RBC Distribution Width CV 14.3 % (11.6-14.6); RBC Distribution Width SD 49.1 fl (35.1-43.9); Red Blood Count 4.26 M/mm3 (4.2-5.4); White Blood Count 9.2 K/mm3 (4.4-11.0)
--- NOTE | 2022-01-02 10:45 | EKG12_ITS ---
Test Reason : REPEAT Blood Pressure : / mmHG Vent. Rate : 060 BPM Atrial Rate : 060 BPM P-R Int : 194 ms QRS Dur : 084 ms QT Int : 416 ms P-R-T Axes : 063 019 049 degrees QTc Int : 416 ms Sinus rhythm with Premature atrial complexes Low voltage QRS (Limb Leads) Confirmed by AUDRA MCCULLOUGH, DEVON ([id number]), photo editor HUSSEIN FERNANDES ([id number]) on 01/04/2022 12:44:05 PM Referred By: SARANYA Confirmed By:DEVON ZHU MD
--- NOTE | 2022-01-02 10:45 | RAD_ITS ---
STUDY: X-RAY CHEST REASON FOR EXAM: Female, 76 years old. Chest pain TECHNIQUE: Single frontal view of the chest. COMPARISON: 06/05/2021 FINDINGS: The lungs are clear and expanded. There is no demonstrated pleural abnormality. Sternal cerclage wires are present from a prior sternotomy. The cardiac silhouette is within normal limits. Normal mediastinum and jessica. Normal visualized pulmonary arteries. Normal visualized aortic arch and descending thoracic aorta. Normal visualized thoracic spine. There are postsurgical changes of the visualized lower cervical spine and the upper lumbar spine. There is no demonstrated abnormality of the visualized soft tissue structures of the upper abdomen. RAD/Chest 1 View (Portable) IMPRESSION: No acute cardiopulmonary process. Electronically Signed: Marya Galdamez MD at 11:32 EST ,
--- NOTE | 2022-01-02 10:46 | EDS_ITS ---
HPI History of Present Illness Chief Complaint: Palpitations Detail of Chief Complaint: Chest discomfort and atrial fibrillation Informant: patient Narrative Narrative: Patient presents to the emergency department stating that she thinks she went into atrial fibrillation. Patient states that she woke up about 4:30 AM with discomfort in her throat and ears which typically happens when she is in A. fib. She checked her pulse ox and was noted to be in A. fib. Patient states that she has this happen about once a week. Patient states normally she is able to get out of it with some breathing. She did take her medications today and normally takes Plavix and aspirin as well as Cardizem. Currently she denies any chest pain or shortness of breath. She denies recent illness. Patient does have history of coronary artery disease with prior CABG and little over a year ago she had 2 cardiac stents placed. Patient states that she has a total of 12 stents. Prior Similar Symptoms: Yes [facility] Medical History (Updated 01/02/22 @ 11:[address] Davi Shelton, DO) 2 stents 2 stents LAD Adrenal insufficiency [facility] [place] [facility] [place] Angioplty [facility] Arthritis Back pain Bowel obstruction- surgery for adhesions [place], [place] Bullous pemphigoid C-3 to T-1 fusion [facility] C4-5 Fusion [place] C5-6 Discectomy [place] C6-7 Discectomy [facility] Chest pain Difficulty balancing when standing Gallbladder H/o blood or blood products H/o Sphincteroplasty of bile ducts H/o T & A Heart Cath Heart disease Knee pain L-2L5 fusion [facility] L3-4 fusion [facility] L4-5 fusion [facility] Laceration of right forearm Left Knee meniscus arthroplasty Limb weakness Meniscus Arthroscopy R Knee Mesenric Stent Osteoporosis Partial colectomy with anastomosis [place] Repeat of meniscus [place] Mesenteric ngioplasty Triple Bypass Vitamin D deficiency Wrist psiform arthroplasty [facility] Home Medications gabapentin 300 mg PO QHS 08/06/16 [History Last Taken 08/25/20] linaclotide [Linzess] 1 cap PO DAILY 08/06/16 [History Last Taken 08/25/20] nitroglycerin 0.4 mg SUBLINGUAL Q5M PRN 08/06/16 [History Last Taken 08/25/20] acetaminophen 325 mg PO TID PRN PRN 03/03/19 [History Last Taken 08/25/20] aspirin 81 mg tablet,delayed release 81 mg PO DAILY 08/03/20 [History Last Taken 08/22/20] clopidogrel 75 mg tablet 37.5 mg PO DAILY PRN tab 08/03/20 [History Last Taken 08/25/20] diltiazem HCl 30 mg tablet 15 tab PO PRN PRN 08/03/20 [History Last Taken 08/25/20] famotidine 20 mg tablet 20 mg PO DAILY 08/03/20 [History Last Taken 08/25/20] ibuprofen 200 mg tablet 200 mg PO Q6H PRN 08/03/20 [History Last Taken 08/25/20] tramadol 50 mg tablet 50 mg PO PRN PRN tab 08/03/20 [History Last Taken 08/25/20] prednisone 5 mg tablet 5 mg PO DAILY tab 10/11/21 [History Last Taken Unknown] ezetimibe 10 mg PO DAILY 01/02/22 [History Last Taken Unknown] fenofibrate nanocrystallized 145 mg PO DAILY 01/02/22 [History Last Taken Unknown] lidocaine 1 patch TRANSDERMAL DAILY 01/02/22 [History Last Taken Unknown] Allergy/AdvReac Type Severity Reaction Status Date / Time almond Allergy Severe Anaphylaxis Verified 01/02/22 10:14 amiodarone Allergy Severe Anaphylaxis Verified 01/02/22 10:14 Rljpayb-AJP-FeI Reductase Allergy Mild Other Verified 01/02/22 10:14 Inhibitor [Rhtrctf-Sqm-Tgs Reductase Inhibitor] dabigatran etexilate Allergy Abd Verified 01/02/22 10:14 [From Pradaxa] cramps/diarrhea diazepam [From Valium] AdvReac Severe Low blood Verified 01/02/22 10:14 pressure morphine AdvReac Severe Low blood Verified 01/02/22 10:14 pressure lorazepam [From Ativan] AdvReac Intermediate Other Verified 01/02/22 10:14 methotrexate AdvReac DIZZINESS Verified 01/02/22 10:14 Family History Father Arthritis Mother Amyloidosis Glaucoma Sister Polymyalgia rheumatica Glaucoma Other Heart disease Primary amyloidosis Surgical History H/O angioplasty H/O heart artery stent H/O: hysterectomy Social History household members: spouse housing: house Smoking Status: Never smoker alcohol intake: never what type of physical activity do you participate in: walking do you feel safe at home: Yes ROS ROS ED Review of Systems ROS Unobtainable: other Constitutional Constitutional ED: Reports lethargy; Denies chills, fever(s), sweats or weight loss Eyes Eyes: Denies blurry vision, change in vision or diplopia ENT ENT ED: Denies rhinorrhea or sore throat Cardiovascular Cardiovascular: Reports chest pain, palpitations and racing heartbeat; Denies orthopnea Respiratory/Chest Respiratory/Chest: Reports dyspnea and dyspnea on exertion; Denies cough, orthopnea or sputum Gastrointestinal Gastrointestinal: Denies abdominal pain, diarrhea, nausea or vomiting Genitourinary Genitourinary ED: Denies dysuria, hematuria or urinary frequency Musculoskeletal Musculoskeletal: Denies arthralgias, back pain, myalgias or neck pain Integumentary Denies abscess, Abrasions or rash Neurologic Neurologic: Denies headache(s) or weakness Psychiatric Psychiatric: Denies anxiety, depression or suicidal thoughts Endocrine Endocrinology: Denies polydipsia, polyphagia or polyuria Hematologic/Lymphatic Hematologic/Lymphatic: Denies easy bleeding, easy bruising or lymphadenopathy Allergic/Immunologic Allergic/Immunologic ED: Denies mouth swelling, tongue swelling or urticaria EXAM Physical Exam Const Vital Signs: 01/02/22 10:12 01/02/22 10:20 Temperature 95.9 F L Temperature Source Temporal Pulse Rate 115 H Respiratory Rate 16 Blood Pressure 114/68 Blood Pressure Mean 83 Pulse Ox 98 97 Oxygen Delivery Method Room Air Room Air Positive well nourished and well developed General Appearance ED: well developed and NAD HEENT Reports TM's clear and moist mucous membranes normocephalic and atraumatic; Negative for trauma or tenderness Tympanic Membrane ED: Yes TM's clear Eyes PERRL and EOMs intact bilaterally General Eye ED: Negative for pale conjunctiva or scleral icterus Neck no lymphadenopathy, supple and no JVD General: Negative for tenderness Chest Wall inspection of chest normal and palpation of chest normal Chest: Negative for tenderness Resp normal respiratory effort and clear to auscultation bilaterally Effort and Inspection: Negative for respiratory distress or pain with movement Auscultation: Negative for rhonchi, wheezes or diminished lung sounds Cardio regular rate, regular rhythm, S1 normal heart sound, S2 normal heart sound and no murmurs Peripheral Pulses: pulses 2+ throughout GI normal to inspection, nondistended, normoactive bowel sounds, soft to palpation, non-tender, non-distended and no masses Back/Spine no CVA tenderness and no thoracic nor lumbar tenderness Extremity normal to inspection General Extremety ED: Negative for edema General Extremity: Negative for edema Neuro oriented x3, CN's II-XII intact bilaterally, no sensory deficits noted and gait normal Sensorium / Orientation: awake, alert, oriented to person, oriented to place and oriented to time Motor Exam: strength 5/5 throughout and strength abnormal Psych mental status grossly normal Skin no rashes or lesions noted and no wounds Heart Score History: Slightly/Non-Suspicious ECG: Nonspecific Repolarization Age: >/= 65 years Risk Factors: >/= 3 Risk Factors or History of CAD Troponin: </= Normal Limit Score: 5 MDM MDM MDM Narrative Medical decision making narrative: IV line established on arrival. Patient placed on a engine monitor. As I was speaking to the patient I noticed that the monitor was now normal sinus rhythm and initial EKG showed atrial fibrillation. Patient lab work-up was unremarkable. Her troponin was normal. She is asymptomatic currently. Reason patient came in today is that her symptoms lasted longer than usual but she has had frequent episodes like this. Patient currently not anticoagulated as she is not been able to tolerate Coumadin or Eliquis or Xarelto. She tells me that she was evaluated for possible ablation but was told that she would have to be on Eliquis for 3 months prior to an ablation. Patient has not been able to have an ablation. While in the department I did give her Cardizem 20 mg IV bolus. She is still in sinus rhythm and continues to be asymptomatic. Patient advised to follow-up with her police liaison within next 3 to 5 days. Patient advised to return if persistent tachycardia, chest pain, shortness of breath, or condition should worsen anyway. Patient had a repeat EKG prior to discharge which documented a sinus rhythm with no acute ST segment changes noted. Lab Data Labs: Laboratory Results - last 24 hr 01/02/22 01/02/22 01/02/22 10:36 10:36 10:36 WBC 9.2 RBC 4.26 Hgb 12.6 Hct 40.3 MCV 94.6 MCH 29.6 MCHC 31.3 L RDW Std Deviation 49.1 H RDW Coeff of Zen 14.3 Plt Count 353 MPV 10.0 Immature Gran % (Auto) 0.400 Neut % (Auto) 64.0 Lymph % (Auto) 20.9 [place] % (Auto) 11.8 H Eos % (Auto) 1.9 Baso % (Auto) 1.0 Absolute Neuts (auto) 5.9 Absolute Lymphs (auto) 1.92 Nucleated RBC % 0 PT 11.6 L INR 0.9 Sodium 140 Potassium 4.0 Chloride 111 H Carbon Dioxide 26.0 Anion Gap 3 L BUN 22 H Creatinine 1.30 H Estim Creat Clear Calc 33.74 Est GFR (MDRD) Af Amer 51 L Est GFR (MDRD) Non-Af 42 L BUN/Creatinine Ratio 16.9 Glucose 98 Calcium 8.9 Troponin I High Sens 13 Radiography Chest X-Ray - ED: 1 View Diagnostic Testing: Clinical Impression(s) from Imaging Studies Chest X-Ray 01/02/22 10:45 IMPRESSION: No acute cardiopulmonary process. Electronically Signed: Marya Galdamez MD at 11:32 EST , 1 view chest x-ray obtained interpreted by myself as no acute disease process. Radiology report pending. EKG Initial EKG: Attestation: I personally reviewed and interpreted this EKG as follows: Comments: Atrial fibrillation with rapid ventricular response with a rate of [address] changes Prior EKG tracings: available for review Prior: Changed Discharge Plan Triage Chief Complaint: Palpitations ED Provider: Davi Shelton Dx/Rx/DC Orders Clinical Impression: Atrial fibrillation with RVR Instructions: ED AFIB, ED Chest Pain, Uncertain Cause Prescriptions: No Action tramadol 50 mg tablet 50 mg PO PRN PRN (Reason: BACK PAIN) RF: 0 clopidogrel 75 mg tablet 37.5 mg PO DAILY PRN (Reason: a-fib) RF: 0 diltiazem HCl 30 mg tablet 15 tab PO PRN PRN (Reason: a-fib) RF: 0 aspirin 81 mg tablet,delayed release (DR/EC) 81 mg PO DAILY RF: 0 ibuprofen 200 mg tablet 200 mg PO Q6H PRN (Reason: Pain Or Fever) RF: 0 famotidine [Pepcid] 20 mg tablet 20 mg PO DAILY RF: 0 nitroglycerin 0.4 MG tablet 0.4 mg sublingual Q5M PRN (Reason: Chest Pain) RF: 0 gabapentin 100 MG capsule 300 mg PO QHS RF: 0 Linzess 145 MCG capsule 1 cap PO DAILY RF: 0 acetaminophen 325 MG tablet 325 mg PO TID PRN PRN (Reason: Pain) RF: 0 prednisone 5 mg tablet 5 mg PO DAILY RF: 0 ezetimibe 10 mg tablet 10 mg PO DAILY RF: 0 fenofibrate nanocrystallized 145 mg tablet 145 mg PO DAILY RF: 0 lidocaine 5 % adhesive patch,medicated 1 patch transdermal DAILY RF: 0 Primary Care Provider: Linda Bhakta Referrals: Linda Bhakta [Primary Care Provider] - Activity Restrictions/Additional Instructions: Follow-up with your police liaison in 3 to 5 days. Disposition Disposition: Home, Self Care
[2022-01-02 10:52] LABS: International Normalized Ratio 0.9; Prothrombin Time (Protime)PT. 11.6 SECONDS (11.7-14.9)
[2022-01-02 10:58] LABS: Anion Gap 3 (5-15); BUN 22 mg/dL (7-18); BUN/Creat Ratio 16.9 RATIO (10-20); Calcium,Total 8.9 mg/dL (8.5-10.1); Chloride 111 mmol/L (98-107); EST Glomerular Filtration Rate 42 mL/min (>60); Est Glom Filt Rate - Afr Amer 51 mL/min (>60); Estimated Creatinine Clearance 33.74 ml/min; Glucose 98 mg/dL (74-106); Sodium Level 140 mmol/L (136-145); Troponin-I HS 13 pg/mL (3.0-54.0)
[2022-01-02] MEDS: Aspirin 81 MG TAB.CHEW 324 MG PO (11:21)
[2022-01-02] MEDS: 0.9% Normal Saline 1,000 ML 150 ML IV (11:22)
[2022-01-02] MEDS: dilTIAZem 25 MG/5 ML Vial 20 MG IV BOLUS (11:22)
[2022-01-02 11:59] VITALS: BP 107/56; PULSE 69; RESP 16; O2SAT 98
== END 2022-01-02 12:08 | disposition home or self-care (01) ==
LOC: ED 11:52
PROVIDERS: Emergency Provider Emergency Medicine; PCP Family Medicine; Visit Provider Emergency Medicine
DX: I48.91 Unspecified atrial fibrillation (principal); I25.10 Atherosclerotic heart disease of native coronary artery without angina pectoris; M19.90 Unspecified osteoarthritis, unspecified site; M81.0 Age-related osteoporosis without current pathological fracture; Z95.1 Presence of aortocoronary bypass graft; Z95.5 Presence of coronary angioplasty implant and graft; Z79.02 Long term (current) use of antithrombotics/antiplatelets; Z79.82 Long term (current) use of aspirin; Z79.899 Other long term (current) drug therapy
CPT/HCPCS: 71045; 80048; 84484; 85025; 85610; 93005; 96361; 96374; 99285; J7030; A4216

== ENCOUNTER 2022-02-18 10:32 | Outpatient (CLI) | payer MEDICARE, OTHER, SELFPAY ==
--- NOTE | 2022-02-18 10:35 | BI_ITS ---
MAMMOGRAPHY - BILATERAL SCREENING REASON FOR EXAM: Female, 76 years old. Routine annual screening examination. PERTINENT HISTORY: Non-contributory. History of remote bilateral excisional breast biopsies. TECHNIQUE: Digital bilateral breast mckayla (3D mammographic acquisition) in the CC and MLO projections. 2-D mediolateral oblique (MLO) and craniocaudad (CC) views of both breasts were obtained. CAD: Full Field Digital Mammography with Computer Added Detection was performed. COMPARISON: Comparison is made with prior study of December 2017 and 01/14/2016. FINDINGS: Breast Composition: There are scattered areas of fibroglandular density. There are no dominant masses or suspicious calcifications. No other significant abnormalities are identified. There has been no significant change since the prior study. BI/SCRN MAMM (CAD)W/MCKAYLA BILAT IMPRESSION: Stable bilateral screening mammogram. Yearly follow-up mammogram recommended. (A) ASSESSMENT CATEGORY: BIRADS Category 1: Negative. A letter regarding these results will be sent to the patient by the facility within 30 days. Approximately 10% of breast cancers are not detected by mammography. A normal mammogram should not delay biopsy of a clinically suspicious abnormality. [id number] Electronically Signed: Fernando Olivas MD at 11:15 EDT ,
== END 2022-02-18 23:59 | disposition home or self-care (01) ==
LOC: OPBI 10:33
PROVIDERS: PCP Family Medicine; Referring Provider Family Medicine; Visit Provider Family Medicine
DX: Z12.31 Encounter for screening mammogram for malignant neoplasm of breast (principal)
CPT/HCPCS: 77063; 77067

== ENCOUNTER → 2022-03-11 | Outpatient (CLI) | payer MEDICARE, OTHER, SELFPAY ==
[2022-03-11 08:55] VITALS: BP 134/61; PULSE 78; RESP 16; TEMP 35.8; O2SAT 98; BMI 19.3
== END | disposition home or self-care (01) ==
LOC: MEDOUTP 08:50
PROVIDERS: PCP Family Medicine; Referring Provider Family Medicine; Visit Provider Family Medicine
DX: M81.0 Age-related osteoporosis without current pathological fracture (principal)

== ENCOUNTER → 2022-04-14 | Outpatient (CLI) | payer MEDICARE, OTHER, SELFPAY ==
[2022-04-14 12:32] LABS: Albumin, Serum 3.5 g/dL (3.2-5.0); BUN 15 mg/dL (7-18); BUN/Creat Ratio 15.5 RATIO (10-20); Chloride 104 mmol/L (98-107); Creatinine, Serum 0.96 mg/dL (0.55-1.02); EST Glomerular Filtration Rate 60 mL/min (>60); Est Glom Filt Rate - Afr Amer 72 mL/min (>60); Glucose 83 mg/dL (74-106); Potassium 4.4 mmol/L (3.5-5.1); Sodium Level 138 mmol/L (136-145)
[2022-04-14 12:41] LABS: Protein, Urine (Random) 35.1 mg/dL (<11.9); Protein:Creat Ratio 157 mg/g CRE (0-200)
== END | disposition home or self-care (01) ==
LOC: POLAB3 10:38
PROVIDERS: PCP Family Medicine; Visit Provider Internal Medicine Nephrology
DX: N18.32 Chronic kidney disease, stage 3b (principal)
CPT/HCPCS: 36415; 80069; 82570; 84156

== ENCOUNTER → 2022-04-23 | Outpatient (CLI) | payer MEDICARE, OTHER, SELFPAY ==
--- NOTE | 2022-04-23 07:44 | US_ITS ---
STUDY: RENAL ULTRASOUND - COMPLETE REASON FOR EXAM: Female, 76 years old. CKD TECHNIQUE: Ultrasound evaluation of the kidneys was performed with real-time and static thompson-scale imaging. COMPARISON: None. FINDINGS: RIGHT KIDNEY: Normal location of the right kidney, which is normal in size. The right kidney measures 9 x 4.4 x 3.1 cm. There is a normal cortex of the right kidney. The renal cortex measures 1.2 cm. There is no right renal mass or cyst. There are no right renal calculi. There is no right hydronephrosis. DISTAL RIGHT URETER: There is non-visualization of the distal right ureter. There is no demonstrated right ureterovesical junction calculus. There is a visualized right ureteral jet. LEFT KIDNEY: Normal location of the left kidney, which is normal in size. The left kidney measures 9.1 x 3.9 x 4.9 cm. There is a normal cortex of the left kidney. The renal cortex measures 1.5 cm. There is no left renal mass or cyst. There are no left renal calculi. There is no left hydronephrosis. DISTAL LEFT URETER: There is non-visualization of the distal left ureter. There is no demonstrated left ureterovesical junction calculus. There is a visualized left ureteral jet. BLADDER: The distended urinary bladder has a volume of 84 ml. The bladder is not well-distended. There is no demonstrated mass within the urinary bladder. There are no demonstrated bladder calculi. US/Kidney and Bladder IMPRESSION: Unremarkable examination. Electronically Signed: Troy Grimm MD at 10:25 EDT ,
== END | disposition home or self-care (01) ==
LOC: US 07:42
PROVIDERS: PCP Family Medicine; Referring Provider Internal Medicine Nephrology; Visit Provider Internal Medicine Nephrology
DX: N18.32 Chronic kidney disease, stage 3b (principal)
CPT/HCPCS: 76770

== ENCOUNTER → 2022-05-24 | Outpatient (CLI) | payer MEDICARE, OTHER, SELFPAY ==
[2022-05-24 12:18] LABS: Albumin, Serum 3.5 g/dL (3.2-5.0); BUN 20 mg/dL (7-18); BUN/Creat Ratio 17.2 RATIO (10-20); Chloride 108 mmol/L (98-107); Creatinine, Serum 1.16 mg/dL (0.55-1.02); EST Glomerular Filtration Rate 48 mL/min (>60); Est Glom Filt Rate - Afr Amer 58 mL/min (>60); Glucose 101 mg/dL (74-106); Phosphorus 3.3 mg/dL (2.5-4.9); Potassium 3.9 mmol/L (3.5-5.1); Sodium Level 139 mmol/L (136-145)
== END | disposition home or self-care (01) ==
LOC: POLAB3 09:00
PROVIDERS: PCP Family Medicine; Visit Provider Internal Medicine Nephrology
DX: N18.32 Chronic kidney disease, stage 3b (principal)
CPT/HCPCS: 36415; 80069

== ENCOUNTER → 2022-05-31 | Outpatient (CLI) | payer MEDICARE, OTHER, SELFPAY ==
--- NOTE | 2022-05-31 15:46 | CT_ITS ---
EXAM: CT HEAD WITHOUT INTRAVENOUS CONTRAST CLINICAL INDICATION: FALL / HEADACHE ON PLAVIX TECHNIQUE: Multiple axial images were obtained of the head without intravenous contrast. This CT exam was performed using one or more of the following dose reduction techniques: automated exposure control, adjustment of the mA and/or kV according to patient size, and/or use of iterative reconstruction technique. This report was created using [employer] report generation technology. COMPARISON: None. FINDINGS: BRAIN AND EXTRA-AXIAL SPACES: Unremarkable. No intra- or extra-axial hemorrhage. No evidence of acute infarct. No intracranial mass or mass effect. There is preservation of the manuel/white matter interface. Posterior fossa structures are unremarkable. Ventricles are appropriate for age. No hydrocephalus. Basal cisterns are patent. BONES/JOINTS: Unremarkable. No discrete lytic or blastic abnormalities. SINUSES: Unremarkable as visualized. Clear. MASTOID AIR CELLS: Unremarkable. Clear. ORBITS: Visualized globes, extraocular muscles, optic nerves and retrobulbar fat appear unremarkable. CT/Brain/Head without Contrast IMPRESSION: Negative head/brain CT without intravenous contrast. Electronically Signed: Jonathan Downing MD at 16:22 EDT ,
== END | disposition home or self-care (01) ==
LOC: CT 15:44
PROVIDERS: PCP Family Medicine; Visit Provider Family Medicine
DX: R51.9 Headache, unspecified (principal)
CPT/HCPCS: 70450

== ENCOUNTER → 2022-06-04 | Outpatient (CLI) | payer MEDICARE, OTHER, SELFPAY ==
[2022-06-04 09:24] LABS: Hematocrit 41.1 % (37-47); Hemoglobin 12.9 g/dL (12.0-15.0); Mean Corp Hgb Conc 31.4 g/dL (32-36); Mean Corpuscular Hgb 29.8 pg (27.0-32.0); Mean Corpuscular Volume 94.9 fL (81-99); Mean Platelet Vol. 10.1 fl (6.2-12.0); Platelet Count 365 K/mm3 (150-450); RBC Distribution Width CV 13.8 % (11.6-14.6); RBC Distribution Width SD 48.7 fl (35.1-43.9); Red Blood Count 4.33 M/mm3 (4.2-5.4); White Blood Count 13.1 K/mm3 (4.4-11.0)
[2022-06-04 09:56] LABS: Anion Gap 8 (5-15); BUN 23 mg/dL (7-18); BUN/Creat Ratio 18.9 RATIO (10-20); Calcium,Total 8.9 mg/dL (8.5-10.1); Chloride 108 mmol/L (98-107); Creatinine, Serum 1.22 mg/dL (0.55-1.02); EST Glomerular Filtration Rate 46 mL/min (>60); Est Glom Filt Rate - Afr Amer 55 mL/min (>60); Glucose 104 mg/dL (74-106); Potassium 4.3 mmol/L (3.5-5.1); Sodium Level 135 mmol/L (136-145)
== END | disposition home or self-care (01) ==
LOC: LAB 08:46
PROVIDERS: PCP Family Medicine
DX: I25.118 Atherosclerotic heart disease of native coronary artery with other forms of angina pectoris (principal); I48.91 Unspecified atrial fibrillation; I48.92 Unspecified atrial flutter
CPT/HCPCS: 36415; 80048; 85027

== ENCOUNTER → 2022-10-04 | Outpatient (CLI) | payer MEDICARE, OTHER, SELFPAY ==
[2022-10-04 12:16] LABS: Absolute Lymphocyte Count 0.72 X10^3/uL (0.83-4.51); Absolute Neutrophil Count 18.3 X10^3/uL (2.0-7.7); Basophil# 0.04 X10^3/uL; Basophil% 0.2 % (0-1); Hematocrit 38.7 % (37-47); Hemoglobin 12.5 g/dL (12.0-15.0); Lymphocyte # 0.72 X10^3/ul (0.83-4.51); Lymphocyte % 3.5 % (19-41); Mean Corp Hgb Conc 32.3 g/dL (32-36); Mean Corpuscular Hgb 30.3 pg (27.0-32.0); Mean Corpuscular Volume 93.9 fL (81-99); Mean Platelet Vol. 10.3 fl (6.2-12.0); Monocyte# 1.19 X10^3/uL; Monocyte% 5.8 % (0-10); NRBC Flagged by Analyzer 0 % (0-5); Neutrophil # 18.34 X10^3/uL (2.7-7.7); Neutrophil % 89.4 % (47-70); Platelet Count 411 K/mm3 (150-450); RBC Distribution Width CV 14.3 % (11.6-14.6); RBC Distribution Width SD 49.4 fl (35.1-43.9); Red Blood Count 4.12 M/mm3 (4.2-5.4); White Blood Count 20.5 K/mm3 (4.4-11.0)
[2022-10-04 12:23] LABS: Anion Gap 7 (5-15); BUN 34 mg/dL (7-18); BUN/Creat Ratio 25.2 RATIO (10-20); Calcium,Total 10.1 mg/dL (8.5-10.1); Chloride 101 mmol/L (98-107); Creatinine, Serum 1.35 mg/dL (0.55-1.02); EST Glomerular Filtration Rate 40 mL/min (>60); Est Glom Filt Rate - Afr Amer 49 mL/min (>60); Glucose 93 mg/dL (74-106); Potassium 4.1 mmol/L (3.5-5.1); Sodium Level 138 mmol/L (136-145); Uric Acid 6.7 mg/dL (2.6-6.0)
[2022-10-05 16:11] LABS: ANTINUCLEAR ANTIBODIES DIRECT Negative (Negative)
== END | disposition home or self-care (01) ==
LOC: MTLAB 09:51
PROVIDERS: PCP Family Medicine; Referring Provider Podiatrist; Visit Provider Podiatrist
DX: L97.222 Non-pressure chronic ulcer of left calf with fat layer exposed (principal)
CPT/HCPCS: 36415; 80048; 84550; 85025; 86038; 86140

== ENCOUNTER 2022-10-11 10:17 | Emergency (ER) | payer MEDICARE, OTHER, SELFPAY ==
[2022-10-11 10:18] VITALS: BP 170/86; PULSE 104; RESP 16; TEMP 36.3; O2SAT 97; BMI 19.4
--- NOTE | 2022-10-11 11:00 | EX.ED.DYSGE1 ---
HPI History of Present Illness Chief Complaint: Other, Pain/Inj Detail of Chief Complaint: Bilateral hand pain and redness Informant: patient Onset/Context/Timing Onset: Weeks (2 weeks) Context: Gradual Onset Current Severity: Moderate Maximum Severity: Moderate Narrative Narrative: Patient presents with redness, pain, swelling to both hands. She states she started with redness and swelling at the left first MCP joint. She was being seen at [facility] orthopedics for her left hip and they evaluated her hand as well. They did a focal injection of cortisone into the joint. She states in spite of this the redness and swelling have continued. She now has redness throughout her hand and is now starting to get redness of the right hand with swelling of her right thumb as well. She reportedly saw her primary care physician who wanted to put her on some steroids and medication for gout. She states the blood work for gout came back normal. She has not been back to see orthopedics. [facility] Medical History 2 stents 2 stents LAD Adrenal insufficiency Angioplasty [facility] Angioplasty [facility] Angioplasty [facility] Angioplasty [facility] Angioplsty [place] Angioplty [facility] Arthritis Back pain Bowel obstruction- surgery for adhesions [place], [place] Bullous pemphigoid C-3 to T-1 fusion [facility] C4-5 Fusion [place] C5-6 Discectomy [place] C6-7 Discectomy [facility] Chest pain Difficulty balancing when standing Gallbladder H/o blood or blood products H/o Sphincteroplasty of bile ducts H/o T & A Heart Cath Heart disease Knee pain L-2L5 fusion [facility] L3-4 fusion [facility] L4-5 fusion [facility] Laceration of right forearm Left Knee meniscus arthroplasty Limb weakness Meniscus Arthroscopy R Knee Mesenric Stent Osteoporosis Partial colectomy with anastomosis [place] Repeat of meniscus [place] Mesenteric ngioplasty Triple Bypass Vitamin D deficiency Wrist psiform arthroplasty [facility] Home Medications gabapentin 100 mg capsule 300 mg PO QHS nerve 08/06/16 [History Last Taken 08/25/20] linaclotide 145 mcg capsule (Linzess) 1 cap PO DAILY IBS 08/06/16 [History Last Taken 08/25/20] nitroglycerin 0.4 mg sublingual tablet 0.4 mg sublingual Q5M PRN Chest Pain 08/06/16 [History Last Taken 08/25/20] acetaminophen 325 mg tablet 325 mg PO TID PRN PRN Pain 03/03/19 [History Last Taken 08/25/20] aspirin 81 mg tablet,delayed release 81 mg PO DAILY 08/03/20 [History Last Taken 08/22/20] clopidogrel 75 mg tablet 37.5 mg PO DAILY PRN a-fib 08/03/20 [History Last Taken 08/25/20] diltiazem HCl 30 mg tablet 15 tab PO PRN PRN a-fib 08/03/20 [History Last Taken 08/25/20] famotidine 20 mg tablet (Pepcid) 20 mg PO DAILY 08/03/20 [History Last Taken 08/25/20] ibuprofen 200 mg tablet 200 mg PO Q6H PRN Pain Or Fever 08/03/20 [History Last Taken 08/25/20] tramadol 50 mg tablet 50 mg PO PRN PRN BACK PAIN 08/03/20 [History Last Taken 08/25/20] prednisone 5 mg tablet 5 mg PO DAILY steroid 10/11/21 [History Last Taken Unknown] ezetimibe 10 mg tablet 10 mg PO DAILY 01/02/22 [History Last Taken Unknown] fenofibrate nanocrystallized 145 mg tablet 145 mg PO DAILY 01/02/22 [History Last Taken Unknown] lidocaine 5 % topical patch 1 patch transdermal DAILY 01/02/22 [History Last Taken Unknown] cephalexin 500 mg capsule 500 mg PO Q6 #40 caps 10/11/22 [Rx Last Taken Unknown] prednisone 20 mg tablet 40 mg PO DAILY #10 tabs 10/11/22 [Rx Last Taken Unknown] sulfamethoxazole 800 mg-trimethoprim 160 mg tablet (Bactrim DS) 1 tab PO BID #20 tabs 10/11/22 [Rx Last Taken Unknown] Allergy/AdvReac Type Severity Reaction Status Date / Time almond Allergy Severe Anaphylaxis Verified 10/11/22 10:20 amiodarone Allergy Severe Anaphylaxis Verified 10/11/22 10:20 Oxwhedc-LCZ-LtD Reductase Allergy Mild Other Verified 10/11/22 10:20 Inhibitor [Bhlnowh-Qee-Yld Reductase Inhibitor] dabigatran etexilate Allergy Abd Verified 10/11/22 10:20 [From Pradaxa] cramps/diarrhea diazepam [From Valium] AdvReac Severe Low blood Verified 10/11/22 10:20 pressure morphine AdvReac Severe Low blood Verified 10/11/22 10:20 pressure lorazepam [From Ativan] AdvReac Intermediate Other Verified 10/11/22 10:20 methotrexate AdvReac DIZZINESS Verified 10/11/22 10:20 Family History Father Arthritis Mother Amyloidosis Glaucoma Sister Polymyalgia rheumatica Glaucoma Other Heart disease Primary amyloidosis Surgical History H/O angioplasty H/O heart artery stent H/O: hysterectomy Social History household members: spouse housing: house Smoking Status: Never smoker alcohol intake: never what type of physical activity do you participate in: walking do you feel safe at home: Yes ROS ROS ED Constitutional Constitutional ED: Denies chills or fever(s) Eyes Eyes: Denies change in vision or discharge from eye(s) ENT ENT ED: Denies discharge from eye(s), rhinorrhea or sore throat Cardiovascular Cardiovascular: Denies chest pain or palpitations Respiratory/Chest Respiratory/Chest: Denies cough or dyspnea Gastrointestinal Gastrointestinal: Denies abdominal pain, nausea or vomiting Genitourinary Genitourinary ED: Denies dysuria Musculoskeletal Musculoskeletal: Reports extremity pain; Denies back pain Integumentary Reports other Details: Erythema and warmth to bilateral hands. ; Denies Abrasions or rash Neurologic Neurologic: Denies headache(s) or weakness Psychiatric Psychiatric: Denies anxiety or depression Endocrine Endocrinology: Denies polydipsia or polyuria Allergic/Immunologic Allergic/Immunologic ED: Denies lip swelling or urticaria EXAM Physical Exam Const Vital Signs: 10/11/22 10:18 10/11/22 11:48 Temperature 97.4 F L Temperature Source Temporal Pulse Rate 104 H Respiratory Rate 16 Respiratory Effort Normal Non-Labored Respiratory Pattern Normal Blood Pressure 170/86 H Blood Pressure Mean 114 Pulse Ox 97 Oxygen Delivery Method Room Air Positive well nourished and well developed General Appearance ED: well developed HEENT Reports moist mucous membranes Eyes PERRL and EOMs intact bilaterally Neck no lymphadenopathy Chest Wall inspection of chest normal and palpation of chest normal Resp normal respiratory effort and clear to auscultation bilaterally Cardio regular rate and regular rhythm GI normal to inspection, nondistended, normoactive bowel sounds Extremity Extremity Narrative: Erythema and edema with warmth noted to the thumbs bilaterally. Some superficial skin peeling is noted to the proximal left thumb. Decreased range of motion at the interphalangeal joints bilaterally secondary to edema. She also has erythema and warmth spread to the hands bilaterally. There is no lymphangitic streak. Neuro oriented x3 Psych mental status grossly normal Skin Skin Narrative: As noted above. MDM MDM MDM Narrative Medical decision making narrative: Work obtained. Bilateral hand x-rays ordered. Patient declined anything for pain here. Lab Data Attestation: I reviewed the patient's lab results. Labs: Laboratory Results - last 24 hr 10/11/22 10/11/22 11:20 11:20 WBC 21.0 H RBC 4.40 Hgb 12.9 Hct 40.7 MCV 92.5 MCH 29.3 MCHC 31.7 L RDW Std Deviation 48.4 H RDW Coeff of Zen 14.3 Plt Count 415 MPV 9.9 Immature Gran % (Auto) 1.800 H Neut % (Auto) 90.3 H Lymph % (Auto) 2.7 L [place] % (Auto) 5.1 Eos % (Auto) 0.0 Baso % (Auto) 0.1 Absolute Neuts (auto) 18.9 H Absolute Lymphs (auto) 0.56 L Nucleated RBC % 0 ESR 47 H Sodium 140 Potassium 3.9 Chloride 108 H Carbon Dioxide 26.0 Anion Gap 6 BUN 32 H Creatinine 1.10 H Estim Creat Clear Calc 39.88 Est GFR (MDRD) Af Amer 62 Est GFR (MDRD) Non-Af 51 L BUN/Creatinine Ratio 29.1 H Glucose 86 Uric Acid 5.6 Calcium 9.5 C-React Prot Ext Range 128.00 H Radiography Diagnostic Testing: Clinical Impression(s) from Imaging Studies Hand X-Ray 10/11/22 11:03 IMPRESSION: 1. 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 Electronically Signed: Daron Green MD at 11:31 EST Reading Location ID and State: [facility] / ID , Service support , Hand X-Ray 10/11/22 11:03 IMPRESSION: Inflammatory arthritic changes of the left hand and wrist. Degenerative joint disease of the hand and wrist, as described above. Electronically Signed: Daron Green MD at 11:18 EST , Treatment and Re-Evaluation Narrative: Patient's white count is elevated at 21,000 with 90% neutrophils. This is slightly worse compared to her most recent labs. Chemistry studies largely unremarkable. Her CRP is elevated to 128 and her sed rate is 47. Bilateral hand x-rays per my interpretation reveal chronic degenerative changes. Radiology interpretation is reviewed and agrees. Test results are discussed with the patient. My suspicion is that she has inflammatory arthritis. With the degree of skin redness and warmth I am concerned that she had a secondary cellulitis especially with the peeling skin over the left thumb. I will treat her with steroids as well as Bactrim and Keflex for skin infection. She has [place] at home to use for pain. Encouraged to follow-up with her orthopedist. Discharge Plan Triage Chief Complaint: Other, Pain/Inj ED Provider: Ebonie Conrad Dx/Rx/DC Orders Clinical Impression: Cellulitis, Inflammatory arthritis Instructions: ED Cellulitis, ED Osteoarthritis Prescriptions: New prednisone 20 mg tablet 40 mg PO DAILY Qty: 10 0RF sulfamethoxazole-trimethoprim [Bactrim DS] 800-160 mg tablet 1 tab PO BID Qty: 20 0RF cephalexin 500 mg capsule 500 mg PO Q6 Qty: 40 0RF No Action tramadol 50 mg tablet 50 mg PO PRN PRN (Reason: BACK PAIN) clopidogrel 75 mg tablet 37.5 mg PO DAILY PRN (Reason: a-fib) Rx Instructions: only if in a-fib diltiazem HCl 30 mg tablet 15 tab PO PRN PRN (Reason: a-fib) Rx Instructions: only takes when in a-fib aspirin 81 mg tablet,delayed release (DR/EC) 81 mg PO DAILY ibuprofen 200 mg tablet 200 mg PO Q6H PRN (Reason: Pain Or Fever) famotidine [Pepcid] 20 mg tablet 20 mg PO DAILY Rx Instructions: only takes when in a-fib nitroglycerin 0.4 MG tablet 0.4 mg sublingual Q5M PRN (Reason: Chest Pain) Label Comments: chest pain gabapentin 100 MG capsule 300 mg PO QHS Label Comments: nerve pain Linzess 145 MCG capsule 1 cap PO DAILY Label Comments: bowels acetaminophen 325 MG tablet 325 mg PO TID PRN PRN (Reason: Pain) prednisone 5 mg tablet 5 mg PO DAILY ezetimibe 10 mg tablet 10 mg PO DAILY fenofibrate nanocrystallized 145 mg tablet 145 mg PO DAILY lidocaine 5 % adhesive patch,medicated 1 patch transdermal DAILY Rx Instructions: TO BACK Primary Care Provider: Khushbu Crum Referrals: Khushbu Crum MD [Primary Care Provider] - Activity Restrictions/Additional Instructions: Follow-up with your orthopedic surgeon in 1 to 2 weeks. Disposition Disposition: Home, Self Care
--- NOTE | 2022-10-11 11:03 | RAD_ITS ---
STUDY: X-RAY - LEFT HAND REASON FOR EXAM: Female, 76 years old. PAIN redness, swelling and pain to bilateral hands for the last 2 weeks. denies injury TECHNIQUE: 3 view(s) of the hand. COMPARISON: X-ray of the left wrist dated October 16, 2012 FINDINGS: Radial and ulnar subluxation of the second through fifth digits demonstrated due to moderate to severe narrowing of the PIP joint. Small erosions and partial ankylosis is seen across the fifth PIP joint. The DIP joints of the second through fifth digits are moderately narrowed as well. A moderate size subchondral cyst is present in the central aspect of the distal radial metaphysis. There is mild to moderate joint space narrowing of the radiocarpal articulation consistent with degenerative arthrosis. Normal distal radioulnar joint. The pisiform bone is partially fragmented with small loose bodies in the surrounding region. The triquetral pisiform articulation is also moderately narrowed.. Normal carpal articulations There is mild to moderate degenerative arthrosis of the carpometacarpal articulation of the thumb with lateral subluxation of the first metacarpus. Normal second through fifth carpometacarpal joints. Normal metacarpi. Normal metacarpophalangeal joint of the thumb. Normal interphalangeal joint of the thumb. Normal proximal and distal phalanges of the thumb. No visualized acute fractures. The soft tissue structures are unremarkable. RAD/Hand Min 3 Views IMPRESSION: Inflammatory arthritic changes of the left hand and wrist. Degenerative joint disease of the hand and wrist, as described above. Electronically Signed: Daron Green MD at 11:18 EST ,
--- NOTE | 2022-10-11 11:03 | RAD_ITS ---
STUDY: X-RAY - RIGHT HAND REASON FOR EXAM: Female, 76 years old. pain TECHNIQUE: 3 view(s) of the hand. COMPARISON: X-ray of the right wrist dated July 30, 2015 FINDINGS: Normal radiocarpal articulation. Normal distal radioulnar joint. Normal visualized carpal bones. Normal carpal articulations Normal carpometacarpal articulation of the thumb. Normal second through fifth carpometacarpal joints. Normal metacarpi. There is mild to moderate degenerative arthrosis of the metacarpophalangeal (MCP) joints. Normal interphalangeal joint of the thumb. Normal proximal and distal phalanges of the thumb. Normal metacarpophalangeal joints of the second through fifth fingers. The IP joints of the first through fifth digits are mildly to moderately narrowed, most pronounced at the fifth PIP articulation. Mild cortical osteophyte formation is also seen in the IP joints of the second and fifth digits. Chondrocalcinosis noted between the distal radius and ulna articular surface compatible with calcinosis of the TFCC. Small loose bodies are also proximal to the ulnar styloid compatible with sequela of degenerative changes. The soft tissue structures are unremarkable. RAD/Hand Min 3 Views IMPRESSION: 1. 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 Electronically Signed: Daron Green MD at 11:31 EST ,
[2022-10-11 11:33] LABS: Erythrocyte Sedimentation Rate 47 mm/hr (0-30)
[2022-10-11 11:35] LABS: Absolute Lymphocyte Count 0.56 X10^3/uL (0.83-4.51); Absolute Neutrophil Count 18.9 X10^3/uL (2.0-7.7); Basophil# 0.03 X10^3/uL; Basophil% 0.1 % (0-1); Differential Indicated SCAN CRITERIA MET; Eosinophil# 0.01 X10^3/uL; Hematocrit 40.7 % (37-47); Hemoglobin 12.9 g/dL (12.0-15.0); Lymphocyte # 0.56 X10^3/ul (0.83-4.51); Lymphocyte % 2.7 % (19-41); Mean Corp Hgb Conc 31.7 g/dL (32-36); Mean Corpuscular Hgb 29.3 pg (27.0-32.0); Mean Corpuscular Volume 92.5 fL (81-99); Mean Platelet Vol. 9.9 fl (6.2-12.0); Monocyte# 1.07 X10^3/uL; Monocyte% 5.1 % (0-10); NRBC Flagged by Analyzer 0 % (0-5); Neutrophil # 18.94 X10^3/uL (2.7-7.7); Neutrophil % 90.3 % (47-70); POSITIVE DIFFERENTIAL YES; Platelet Count 415 K/mm3 (150-450); RBC Distribution Width CV 14.3 % (11.6-14.6); RBC Distribution Width SD 48.4 fl (35.1-43.9)
[2022-10-11 11:43] LABS: Anion Gap 6 (5-15); BUN 32 mg/dL (7-18); BUN/Creat Ratio 29.1 RATIO (10-20); Calcium,Total 9.5 mg/dL (8.5-10.1); Chloride 108 mmol/L (98-107); EST Glomerular Filtration Rate 51 mL/min (>60); Est Glom Filt Rate - Afr Amer 62 mL/min (>60); Estimated Creatinine Clearance 39.88 ml/min; Glucose 86 mg/dL (74-106); Potassium 3.9 mmol/L (3.5-5.1); Sodium Level 140 mmol/L (136-145); Uric Acid 5.6 mg/dL (2.6-6.0)
[2022-10-11 12:17] VITALS: RESP 16
[2022-10-11 12:47] VITALS: RESP 16
[2022-10-11] MEDS: predniSONE 20 MG Tablet 40 MG PO (12:56)
[2022-10-11] MEDS: Cephalexin 250 MG Capsule 500 MG PO (12:56)
[2022-10-11] MEDS: Smz/Tmp Ds Tablet 1 TABLET PO (12:56)
== END 2022-10-11 12:58 | disposition home or self-care (01) ==
PROVIDERS: Emergency Provider Emergency Medicine; PCP Family Medicine; Visit Provider Emergency Medicine
DX: L03.90 Cellulitis, unspecified (principal); M06.4 Inflammatory polyarthropathy; M79.641 Pain in right hand; M79.642 Pain in left hand; Z79.52 Long term (current) use of systemic steroids
CPT/HCPCS: 73130; 80048; 84550; 85025; 85652; 86140; 99284

== ENCOUNTER → 2022-10-18 | Outpatient (CLI) | payer MEDICARE, OTHER, SELFPAY ==
[2022-10-18 17:54] LABS: Absolute Neutrophil Count 16.8 X10^3/uL (2.0-7.7); Basophil# 0.07 X10^3/uL; Basophil% 0.4 % (0-1); Hematocrit 40.2 % (37-47); Hemoglobin 12.8 g/dL (12.0-15.0); Lymphocyte % 2.1 % (19-41); Mean Corp Hgb Conc 31.8 g/dL (32-36); Mean Corpuscular Hgb 29.2 pg (27.0-32.0); Mean Corpuscular Volume 91.8 fL (81-99); Mean Platelet Vol. 10.8 fl (6.2-12.0); Monocyte# 0.86 X10^3/uL; Monocyte% 4.5 % (0-10); NRBC Flagged by Analyzer 0 % (0-5); Neutrophil % 88.3 % (47-70); POSITIVE DIFFERENTIAL YES; Platelet Count 352 K/mm3 (150-450); RBC Distribution Width CV 14.4 % (11.6-14.6); RBC Distribution Width SD 48.4 fl (35.1-43.9); Red Blood Count 4.38 M/mm3 (4.2-5.4)
[2022-10-18 18:10] LABS: Differential Indicated SCAN CRITERIA MET
[2022-10-18 18:35] LABS: Differential Comment SCANNED; Erythrocyte Sedimentation Rate 22 mm/hr (0-30)
[2022-10-18 18:37] LABS: CRP 3.45 mg/L (0.0-3.0); Rheumatoid Factor < 10.0 IU/mL (<15)
[2022-10-21 10:19] LABS: CCP IgG Antibodies 2 units (0-19)
== END | disposition home or self-care (01) ==
LOC: BFHLAB 16:32
PROVIDERS: PCP Family Medicine; Visit Provider Family Medicine
DX: M06.4 Inflammatory polyarthropathy (principal)
CPT/HCPCS: 36415; 85025; 85652; 86140; 86200; 86431